=== PATIENT | female | born 1955 | race Caucasian/White ===

== ENCOUNTER 2023-01-13 18:43 | Observation (INO) | payer MEDICARE, OTHER ==
[2023-01-13] MEDS ORDERED: SODIUM CHLORIDE 0.9% 1,000 ML IV STA (18:49)
--- NOTE | 2023-01-13 18:57 | ED ---
General Adult HPI - General Chief complaint: Syncope Stated complaint: syncope/fall Time Seen by Provider: 01/13/23 18:43 Source: patient, EMS, RN notes reviewed Mode of arrival: EMS Limitations: no limitations - History of Present Illness Initial comments: 67-year-old female history of type 2 diabetes who states she was going into a bathroom at a local store when she suddenly passed out. She states she had no symptoms before hand no palpitations dizziness sweatiness tunnel vision this is never happened to her before. She was out perhaps for a minute or so she did fall onto a concrete floor striking the back side of her head she states her legs felt heavy and that she fell this all she recalls. No other current complaints or modifying factors no fevers chills nausea vomiting sweats prior to this. - Related Data Allergies Allergy/AdvReac Type Severity Reaction Status Date / Time No Known Allergies Allergy Verified 01/13/23 18:54 Review of Systems ROS Statement: Those systems with pertinent positive or pertinent negative responses have been documented in the HPI. ROS Other: All systems not noted in ROS Statement are negative. Past Medical History Past Medical History: Asthma, CVA/TIA, Diabetes Mellitus, Hyperlipidemia, Hypertension Past Surgical History: Cholecystectomy, Heart Catheterization, Orthopedic Surgery Additional Past Surgical History / Comment(s): right elbow surgery, rotator cuff, knee surgery, gastric bypass, Past Psychological History: Depression Smoking Status: Current every day smoker Past Alcohol Use History: None Reported Past Drug Use History: None Reported General Exam - General Exam Comments Initial Comments: This is a well-developed well-nourished awake alert oriented 4 female with a Raquel Coma Scale of 15 Limitations: no limitations General appearance: alert, anxious Head exam: Present: other (Is palpation over the right occipital scalp no step-o ff or crepitation no open wound seen.) Eye exam: Present: normal appearance, PERRL, EOMI. Absent: scleral icterus, conjunctival injection, periorbital swelling ENT exam: Present: normal exam, mucous membranes moist Neck exam: Present: normal inspection, other (E collar in place no definitive tenderness palpation no step-off. No stridor JVD or bruits). Absent: tenderness, meningismus, lymphadenopathy Respiratory exam: Present: normal lung sounds bilaterally. Absent: respiratory distress, wheezes, rales, rhonchi, stridor Cardiovascular Exam: Present: regular rate, normal rhythm, normal heart sounds. Absent: systolic murmur, diastolic murmur, rubs, gallop, clicks GI/Abdominal exam: Present: soft, normal bowel sounds. Absent: distended, t enderness, guarding, rebound, rigid Extremities exam: Present: normal inspection, full ROM, normal capillary refill. Absent: tenderness, pedal edema, joint swelling, calf tenderness Back exam: Present: normal inspection Neurological exam: Present: alert, oriented X3, CN II-XII intact Psychiatric exam: Present: normal affect, normal mood Skin exam: Present: warm, dry, intact, normal color. Absent: rash Course Vital Signs 01/13/23 18:46 Temperature 96.9 F L Pulse Rate 65 Respiratory 18 Rate Blood Pressure 134/81 O2 Sat by Pulse 94 L Oximetry Medical Decision Making - Medical Decision Making I did discuss findings with patient family members as well as Dr. Wade patient be admitted for inpatient evaluation of acute syncopal episode. Was pt. sent in by a medical professional or institution (, PA, VOCATIONAL INSTRUCTOR, urgent care, hospital, or half-way...) When possible be specific @ -No Did you speak to anyone other than the patient for history (EMS, parent, family, police, friend...)? What history was obtained from this source @ -EMS personnel Did you review nursing and triage notes (agree or disagree)? Why? @ -I reviewed and agree with nursing and triage notes Were old charts reviewed (outside hosp., previous admission, EMS record, old EKG, old radiological studies, urgent care reports/EKG's, half-way records)? Report findings @ -No old charts were reviewed Differential Diagnosis (chest pain, altered mental status, abdominal pain women, abdominal pain men, vaginal bleeding, weakness, fever, dyspnea, syncope, headache, dizziness, GI bleed, back pain, seizure, CVA, palpatations, mental health, musculoskeletal)? @ -Syncopal episode, scalp contusion EKG interpreted by me (3pts min.). @ -As above EKG interpreted by me normal sinus rhythm a 65 MI interval 202 QRS duration 93 QT since QTC 413/[address]-T wave changes seen X-rays interpreted by me (1pt min.). @ -This x-ray interpreted by me no acute process CT interpreted by me (1pt min.). @ -CT brain and C-spine interpreted by me no evidence of acute traumatic injury U/S interpreted by me (1pt. min.). @ -None done What testing was considered but not performed or refused? (CT, X-rays, U/S, labs)? Why? @ -None What meds were considered but not given or refused? Why? @ -None Did you discuss the management of the patient with other professionals (professionals i.e. DrMisti, PA, VOCATIONAL INSTRUCTOR, lab, RT, psych nurse, oncology social worker, manager organizational, teacher, transportation officer, disease case manager)? Give summary @ - Was smoking cessation discussed for >3mins.? @ -No Was critical care preformed (if so, how long)? @ -No Were there social determinants of health that impacted care today? How? (Homelessness, low income, unemployed, alcoholism, drug addiction, transportation, low edu. Level, literacy, decrease access to med. care, assisted, rehab)? @ -No Was there de-escalation of care discussed even if they declined (Discuss DNR or withdrawal of care, Hospice)? DNR status @ -No What co-morbidities impacted this encounter? (DM, HTN, Smoking, COPD, CAD, Cancer, CVA, ARF, Chemo, Hep., AIDS, mental health diagnosis, sleep apnea, morbid obesity)? @ -Type2 diabetes Was patient admitted / discharged? Hospital course, mention meds given and route, prescriptions, significant lab abnormalities, going to OR and other pertinent info. @ -hospital course she was admitted for inpatient evaluation and potential treatment Undiagnosed new problem with uncertain prognosis? @ -Syncope Drug Therapy requiring intensive monitoring for toxicity (Heparin, Nitro, Ins ulin, Cardizem)? @ -No Were any procedures done? @ -No Diagnosis/symptom? @ -Acute syncopal episode, scalp contusion Acute, or Chronic, or Acute on Chronic? @ -Acute Uncomplicated (without systemic symptoms) or Complicated (systemic symptoms)? @ -default Side effects of treatment? @ -No Exacerbation, Progression, or Severe Exacerbation? @ -No Poses a threat to life or bodily function? How? (Chest pain, [place], [place], pneumonia, PE, COPD, DKA, ARF, appy, cholecystitis, CVA, Diverticulitis, Homicidal, Suicidal, threat to staff... and all critical care pts) @ -Syncope - Lab Data Result diagrams: 01/13/23 19:07 01/13/23 19:07 Lab Results 01/13/23 01/13/23 01/13/23 Range/Units 19:07 19:07 19:07 WBC 9.7 (3.8-10.6) k/uL RBC 4.37 (3.80-5.40) m/uL Hgb 14.6 (11.4-16.0) gm/dL Hct 43.1 (34.0-46.0) % MCV 98.7 (80.0-100.0) fL MCH 33.3 (25.0-35.0) pg MCHC 33.8 (31.0-37.0) g/dL RDW 12.5 (11.5-15.5) % Plt Count 258 (150-450) k/uL MPV 7.8 Neutrophils % 60 % Lymphocytes % 29 % Monocytes % 6 % Eosinophils % 2 % Basophils % 1 % Neutrophils # 5.8 (1.3-7.7) k/uL Lymphocytes # 2.8 (1.0-4.8) k/uL Monocytes # 0.6 (0-1.0) k/uL Eosinophils # 0.2 (0-0.7) k/uL Basophils # 0.1 (0-0.2) k/uL PT 10.5 (10.0-12.5) sec INR 0.9 (<1.2) APTT 23.0 (22.0-30.0) sec D-Dimer 0.32 (<0.60) mg/L FEU Sodium 135 L (137-145) mmol/L Potassium 4.4 (3.5-5.1) mmol/L Chloride 102 (98-107) mmol/L Carbon Dioxide 21 L (22-30) mmol/L Anion Gap 12 mmol/L BUN 18 H (7-17) mg/dL Creatinine 0.92 (0.52-1.04) mg/dL Est GFR (CKD-EPI)AfAm 76 (>60 ml/min/1.73 sqM) Est GFR (CKD-EPI)NonAf 66 (>60 ml/min/1.73 sqM) Glucose 113 H (74-99) mg/dL Calcium 9.6 (8.4-10.2) mg/dL Magnesium 1.7 (1.6-2.3) mg/dL Total Bilirubin 0.8 (0.2-1.3) mg/dL AST 23 (14-36) U/L ALT 23 (4-34) U/L Alkaline Phosphatase 67 (38-126) U/L Troponin I (0.000-0.034) ng/mL Total Protein 6.2 L (6.3-8.2) g/dL Albumin 3.9 (3.5-5.0) g/dL Urine Color Urine Appearance (Clear) Urine pH (5.0-8.0) Ur Specific Barnard (1.001-1.035) Urine Protein (Negative) Urine Glucose (UA) (Negative) Urine Ketones (Negative) Urine Blood (Negative) Urine Nitrite (Negative) Urine Bilirubin (Negative) Urine Urobilinogen (<2.0) mg/dL Ur Leukocyte Esterase (Negative) Urine RBC (0-5) /hpf Urine WBC (0-5) /hpf Urine WBC Clumps (None) /hpf Ur Squamous Epith Cells (0-4) /hpf Urine Bacteria (None) /hpf 01/13/23 01/13/23 Range/Units 19:07 19:14 WBC (3.8-10.6) k/uL RBC (3.80-5.40) m/uL Hgb (11.4-16.0) gm/dL Hct (34.0-46.0) % MCV (80.0-100.0) fL MCH (25.0-35.0) pg MCHC (31.0-37.0) g/dL RDW (11.5-15.5) % Plt Count (150-450) k/uL MPV Neutrophils % % Lymphocytes % % Monocytes % % Eosinophils % % Basophils % % Neutrophils # (1.3-7.7) k/uL Lymphocytes # (1.0-4.8) k/uL Monocytes # (0-1.0) k/uL Eosinophils # (0-0.7) k/uL Basophils # (0-0.2) k/uL PT (10.0-12.5) sec INR (<1.2) APTT (22.0-30.0) sec D-Dimer (<0.60) mg/L FEU Sodium (137-145) mmol/L Potassium (3.5-5.1) mmol/L Chloride (98-107) mmol/L Carbon Dioxide (22-30) mmol/L Anion Gap mmol/L BUN (7-17) mg/dL Creatinine (0.52-1.04) mg/dL Est GFR (CKD-EPI)AfAm (>60 ml/min/1.73 sqM) Est GFR (CKD-EPI)NonAf (>60 ml/min/1.73 sqM) Glucose (74-99) mg/dL Calcium (8.4-10.2) mg/dL Magnesium (1.6-2.3) mg/dL Total Bilirubin (0.2-1.3) mg/dL AST (14-36) U/L ALT (4-34) U/L Alkaline Phosphatase (38-126) U/L Troponin I <0.012 (0.000-0.034) ng/mL Total Protein (6.3-8.2) g/dL Albumin (3.5-5.0) g/dL Urine Color Yellow Urine Appearance Slightly Cloudy H (Clear) Urine pH 6.0 (5.0-8.0) Ur Specific Barnard 1.001 (1.001-1.035) Urine Protein Negative (Negative) Urine Glucose (UA) 3+ H (Negative) Urine Ketones Negative (Negative) Urine Blood Negative (Negative) Urine Nitrite Negative (Negative) Urine Bilirubin Negative (Negative) Urine Urobilinogen <2.0 (<2.0) mg/dL Ur Leukocyte Esterase Moderate H (Negative) Urine RBC 2 (0-5) /hpf Urine WBC 36 H (0-5) /hpf Urine WBC Clumps Occasional H (None) /hpf Ur Squamous Epith Cells 1 (0-4) /hpf Urine Bacteria Few H (None) /hpf - EKG Data -: EKG Interpreted by Me EKG Comments: EKG interpreted by me normal sinus rhythm without acute processes ventricular rate 65. Interval 202 QRS duration 92 QT since QTC 04/08/2012/424 - Radiology Data Interpreted by me: Imaging interpreted B no Disposition Clinical Impression: Syncope and collapse, Scalp contusion Disposition: ADMITTED IP TO THIS [facility] Condition: Stable Referrals: None,Stated [Primary Care Provider] - 1-2 days Decision Date: 01/13/23 Decision Time: 21:05
[2023-01-13 19:28] LABS: Basophils # (A) 0.1 k/uL (0-0.2); Basophils % (A) 1 %; Eosinophils # (A) 0.2 k/uL (0-0.7); Eosinophils % (A) 2 %; HCT 43.1 % (34.0-46.0); HGB 14.6 gm/dL (11.4-16.0); Lymphocytes # (A) 2.8 k/uL (1.0-4.8); Lymphocytes % (A) 29 %; MCH 33.3 pg (25.0-35.0); MCHC 33.8 g/dL (31.0-37.0); MCV 98.7 fL (80.0-100.0); Mean Platelet Volume 7.8; Monocytes # (A) 0.6 k/uL (0-1.0); Monocytes % (A) 6 %; Neutrophils # (A) 5.8 k/uL (1.3-7.7); Neutrophils % (A) 60 %; Platelet Count 258 k/uL (150-450); RBC 4.37 m/uL (3.80-5.40); RDW 12.5 % (11.5-15.5); WBC 9.7 k/uL (3.8-10.6)
[2023-01-13 19:36] LABS: ALT 23 U/L (4-34); AST 23 U/L (14-36); African American GFR (CKD) 76 (>60 ml/min/1.73 sqM); Albumin 3.9 g/dL (3.5-5.0); Alkaline Phosphatase 67 U/L (38-126); Anion Gap 12 mmol/L; Blood Urea Nitrogen 18 mg/dL (7-17); Calcium 9.6 mg/dL (8.4-10.2); Carbon Dioxide 21 mmol/L (22-30); Chloride 102 mmol/L (98-107); Glucose 113 mg/dL (74-99); Magnesium 1.7 mg/dL (1.6-2.3); Non-African American GFR(CKD) 66 (>60 ml/min/1.73 sqM); Potassium 4.4 mmol/L (3.5-5.1); Sodium 135 mmol/L (137-145); Total Bilirubin 0.8 mg/dL (0.2-1.3); Total Protein 6.2 g/dL (6.3-8.2)
[2023-01-13 19:42] LABS: INR 0.9 (<1.2); Prothrombin Time 10.5 sec (10.0-12.5)
[2023-01-13 20:25] LABS: Bacteria,Urine Few /hpf; RBC,Urine 2 /hpf (0-5); Squamous Epithelial Cell,Urine 1 /hpf (0-4); WBC,Urine 36 /hpf (0-5)
[2023-01-13 20:33] LABS: Appearance,Urine Slightly Cloudy (Clear); Bilirubin,Urine Negative (Negative); Color,Urine Yellow; Glucose,Urine (UA) 3+ (Negative); Ketones,Urine Negative (Negative); Protein,Urine Negative (Negative)
[2023-01-13 20:34] LABS: Blood,Urine Negative (Negative); Leukocyte Esterase,Urine Moderate (Negative); Nitrite,Urine Negative (Negative); Urobilinogen,Urine <2.0 mg/dL (<2.0)
[2023-01-13] MEDS ORDERED: ACETAMINOPHEN TAB 325 MG TAB PO STA (20:55)
[2023-01-13] MEDS ORDERED: NALOXONE 0.4 MG/ML 1 ML VIAL IV PRN (21:05)
--- NOTE | 2023-01-13 21:27 | CT ---
EXAMINATION TYPE: CT brain cspine wo con CT DLP: 1617.7 mGycm, Automated exposure control for dose reduction was used. DATE OF EXAM: 01/13/2023 7:38 PM COMPARISON: None. CLINICAL INDICATION:Female, 67 years old with history of syncope; syncope TECHNIQUE: Brain: Multiple axial CT images of the brain were obtained without IV contrast. Cspine: Axial CT images from the skull base to the inferior aspect of T2 we obtained without intraven ous contrast. Coronal and sagittal reformatted images were also reviewed. FINDINGS: Brain: Extra-axial spaces: No abnormal extra-axial fluid collections. Ventricular system: Appear dilated in proportion to the degree of cerebral atrophy. Cerebral parenchyma: No increased attenuation to suggest acute intraparenchymal hemorrhage. The gra y-white matter interface appears maintained. Moderate generalized brain atrophy. Scattered hypoatte nuating areas are seen within the cerebral white matter, nonspecific but most often seen with chronic microvascular ischemic changes; mild/moderate in degree. Cerebellum: No acute abnormality. Mass effect: No evidence of mass effect or midline shift. Intracranial vasculature: Atherosclerotic calcifications of the larger arteries near the skull base. Soft tissues: Scalp hematoma just right of midline posteriorly at the level of the parietal lobe. Visualized orbits: Orbital contents appear grossly intact. Calvarium/osseous structures: No evidence of calvarial fracture. Paranasal sinuses and mastoid air cells: Clear. Nasal septal deviation towards the left with osseous spur in its midportion. MRI is more sensitive for detecting acute processes such as infarct, and may be considered if clinica lly warranted. Cervical spine: Fracture: None seen. Osseous structures, spinal canal/neural foramina: There is mild/moderate multilevel degenerative disc disease and mild facet arthrosis, most prominent at C4-C5, C5-C6, and C6-C7 where predominantly disc osteophyte complexes cause at least mild canal and foraminal narrowing. Vertebral alignment: No trau matic malalignment. Straightening of the normal cervical lordosis, can be seen with degenerative quintana ges, pain, positioning, muscular spasm. Neck soft tissues: No acute finding.. A few arterial vascular calcifications, seem to predominantly i nvolve the left vertebral artery and right carotid bifurcation. Other: Lung apices show no acute infiltrate or pneumothorax. IMPRESSION: CT head: 1. Scalp hematoma posteriorly over the right parietal bone. No evidence of calvarial fracture. 2. Mild to moderate generalized atrophy and chronic microvascular ischemic changes. 3. No acute intracranial hemorrhage. CT cervical spine: 1. No evidence of cervical spine fracture or traumatic malalignment. 2. Mild/moderate cervical spondylosis.
[2023-01-13] MEDS: SODIUM CHLORIDE 0.9% 1,000 ML IV SCH (21:38)
--- NOTE | 2023-01-14 00:01 | XR ---
EXAMINATION TYPE: XR chest 2V DATE OF EXAM: 01/13/2023 9:08 PM CLINICAL INDICATION:Female, 67 years old with history of syncope; [facility] COMPARISON: None TECHNIQUE: XR chest 2V. Frontal PA and lateral views of the chest. FINDINGS: Lines/Tubes: EKG leads and other extraneous densities over the chest. No indwelling lines are seen. Heart/mediastinum: Cardiomediastinal silhouette is well defined. Heart size is normal. Partial calc ification of the aortic arch. Mediastinum appears otherwise normal. Pulmonary vascularity: Not increased, Lungs/Pleura: There is no evidence of pleural effusion, focal consolidation, or pneumothorax. Musculoskeletal: No acute osseous abnormality demonstrated in the limits of the exam. Chronic degene rative changes of the shoulders and spine. Surgical anchor left humeral head. Other findings: None. IMPRESSION: No acute cardiopulmonary abnormality.
[2023-01-14] MEDS ORDERED: DEXTROSE 50% SYRINGE 50 ML IVP PRN ×2 (03:04)
[2023-01-14] MEDS ORDERED: IPRATROPIUM-ALBUTEROL 3 ML NEB INHALATION PRN (03:04)
--- NOTE | 2023-01-14 03:11 | P.HPIM ---
History of Present Illness H&P Date: 01/13/23 Chief Complaint: Syncope 67-year-old female with diabetes mellitus coronary artery disease Patient claims that she takes oral hypoglycemic agents however she didn't eat all day she was feeling fine while she was shopping at grocery store she decided to go to the bathroom where she actually collapsed another lady was in another stall her the start and called EMS. Patient believes that she passed out and hit her head she denies any symptoms prior or after the episode she felt fine after she woke up found herself on the floor hit the back of her head she denies being on any blood thinners or antiplatelets. She currently denies any headache or focal neuro deficits denies any changes in hearing or vision denies any nausea vomiting denies feeling weak denies any chest pain or trouble breathing denies any palpitations. She denies any recent changes in her medications she reports that this has never happened to her before. She walks without assistance. She denies any recent travel her hospital stay denies any history of stroke or blood clots review of systems Pertinent positives as noted in HPI. All other systems were reviewed and are negative on exam Constitutional: No acute distress, conversant, pleasant Eyes: Anicteric sclerae, moist conjunctiva, Pupils equal round reactive to light ENMT: NC/tender area over the scalp of the back of her head Oropharynx clear, no erythema, or exudates Neck: Supple, no masses, or JVD No carotid bruits No thyromegaly Lungs: Clear to auscultation Clear to percussion Normal respiratory effort, no accessory muscle use Cardiovascular: Heart regular in rate and rhythm, No murmurs, gallops, or rubs No peripheral edema Abdominal: Soft Nontender, no guarding, rebound or rigidity Abdomen moving with respiration Normoactive bowel sounds No hepatomegaly, No splenomegaly No palpable mass No abdominal wall hernia noted Extremities: No digital cyanosis No clubbing Pedal pulses intact and symmetrical Radial pulses intact and symmetrical No calf tenderness Psychiatric: Alert and oriented to person, place and time Appropriate affect fair judgement Neuro Muscles Strength 5/5 in all 4 extremities Sensation to light touch grossly present throughout Cranial nerves II-XII grossly intact Lymphatics: no palpable cervical or supraclavicular lymph nodes Past Medical History Past Medical History: Asthma, CVA/TIA, Diabetes Mellitus, Hyperlipidemia, Hypertension Past Surgical History: Cholecystectomy, Heart Catheterization, Orthopedic Surgery Additional Past Surgical History / Comment(s): right elbow surgery, rotator cuff , knee surgery, gastric bypass, Past Psychological History: Depression Smoking Status: Current every day smoker Past Alcohol Use History: None Reported Past Drug Use History: None Reported Medications and Allergies Home Medications Medication Instructions Recorded Confirmed Type Albuterol Inhaler [Ventolin Hfa 1 - 2 puff INHALATION RT-Q6H PRN 01/13/23 01/13/23 History Inhaler] Atorvastatin [Lipitor] 40 mg PO DAILY 01/13/23 01/13/23 History Erenumab-Aooe [Aimovig 70 mg SQ Q30D 01/13/23 01/13/23 History Autoinjector] Liraglutide [Victoza 3-Virgilio] 1.8 mg SQ DAILY 01/13/23 01/13/23 History Losartan [Cozaar] 25 mg PO DAILY 01/13/23 01/13/23 History Montelukast [Singulair] 10 mg PO HS 01/13/23 01/13/23 History Omeprazole 20 mg PO DAILY 01/13/23 01/13/23 History Propranolol LA [Inderal LA] 60 mg PO DAILY 01/13/23 01/13/23 History Ranolazine [Ranexa] 500 mg PO BID 01/13/23 01/13/23 History Rimegepant Sulfate [Nurtec Odt] 75 mg PO DAILY PRN 01/13/23 01/13/23 History Venlafaxine HCl [Effexor XR] 75 mg PO DAILY 01/13/23 01/13/23 History Venlafaxine HCl [Effexor XR] 150 mg PO DAILY 01/13/23 01/13/23 History metFORMIN HCL 500 mg PO BID 01/13/23 01/13/23 History Allergies Allergy/AdvReac Type Severity Reaction Status Date / Time No Known Allergies Allergy Verified 01/13/23 21:51 Physical Exam Vitals: Vital Signs Temp Pulse Resp BP Pulse Ox 01/13/23 18:46 96.9 F L 65 18 134/81 94 L Intake and Output 01/13/23 01/13/23 01/13/23 06:59 14:59 22:59 Other: Weight 104.326 kg Results CBC & Chem 7: 01/13/23 19:07 01/13/23 19:07 Labs: Abnormal Lab Results - Last 24 Hours (Table) 01/13/23 01/13/23 Range/Units 19:07 19:14 Sodium 135 L (137-145) mmol/L Carbon Dioxide 21 L (22-30) mmol/L BUN 18 H (7-17) mg/dL Glucose 113 H (74-99) mg/dL Total Protein 6.2 L (6.3-8.2) g/dL Urine Appearance Slightly Cloudy H (Clear) Urine Glucose (UA) 3+ H (Negative) Ur Leukocyte Esterase Moderate H (Negative) Urine WBC 36 H (0-5) /hpf Urine WBC Clumps Occasional H (None) /hpf Urine Bacteria Few H (None) /hpf Assessment and Plan Assessment: 67-year-old female with diabetes mellitus CAD coming in after a syncopal episode while grocery shopping I discussed the case with the ED doctor and accepted the admission for syncope with anticipated length of stay less than 2 midnights Syncopal episode Suspected secondary to hypoglycemia as patient took her oral hypoglycemic agents without eating all day Initial blood sugar upon arrival was 113 Cardiac monitoring EKG normal sinus rhythm She scan of the brain and cervical spine no acute intracranial pathology no cervical spine pathology. Showed occipital scalp hematoma Pain control Tylenol 650 mg by mouth when necessary every 6 hours Blood work unremarkable myoglobin 14.6 white count 9.7 Sodium 135 potassium 4.4 BUN 18 creatinine 0.9 Troponins negative 2 Urinalysis unremarkable slightly cloudy patient denies any urinary symptoms Check echocardiogram Cardiology consult Chronic conditions Coronary artery disease Continue with atorvastatin 40 mg by mouth daily Continue with Ranexa Hypertension Continue with home medications losartan and propranolol home dose Intermittent asthma DuoNeb's when necessary Continue home medicine Singulair daily Full code DVT prophylaxis heparin subcu 3 times a day
[2023-01-14] MEDS: ACETAMINOPHEN TAB 325 MG TAB PO PRN ×2 (05:38→21:41)
[2023-01-14 07:30] LABS: Glucose,Whole Blood 103 mg/dL (70-110)
[2023-01-14] MEDS: INSULIN ASPART (NovoLOG) 100 UNIT/ML VIAL SQ SCH ×4 (07:32→23:53)
[2023-01-14] MEDS: HEPARIN SODIUM,PORCINE 5,000 UNIT/ML 1 ML VIAL SQ SCH ×3 (07:41→23:54)
[2023-01-14] MEDS: ATORVASTATIN 40 MG TAB PO SCH (08:58)
[2023-01-14] MEDS: PANTOPRAZOLE 40 MG TABLET PO SCH (08:58)
[2023-01-14] MEDS: RANOLAZINE 500 MG TAB.ER.12H PO SCH ×2 (08:58→21:41)
[2023-01-14] MEDS: LOSARTAN 25 MG TAB PO SCH (08:58)
[2023-01-14 11:57] LABS: Glucose,Whole Blood 133 mg/dL (70-110)
[2023-01-14] MEDS: PROPRANOLOL LA 60 MG CAP.SA.24H PO SCH (11:59)
[2023-01-14] MEDS: SODIUM CHLORIDE 0.9% 1,000 ML IV SCH ×2 (12:00→23:59)
--- NOTE | 2023-01-14 12:54 | P.PN ---
Subjective Progress Note Date: 01/14/23 (zora charting seen at 0925) Patient is a 67-year-old female with known diabetes mellitus type 2, hypertension, dyslipidemia, asthma, and migraine headaches who presented to the ER after a syncopal episode. On arrival her vital signs are within normal limits. She underwent CT head and cervical spine which revealed a scalp hematoma over the right parietal bone, mild to moderate generalized atrophy with microvascular ischemic changes, and no evidence of cervical spine fracture or traumatic malalignment. Chest x-ray demonstrated no acute process. There was some concern that her syncopal episode may be due to hypoglycemia. Patient seen and examined at bedside. She complains of pain in the back of her head where she has a scalp hematoma as well as headache. She is overall particularly fatigued today, she denies any difficulty with concentration or memory. She denies any chest pain, shortness of breath, nausea or vomiting. She denies any recent illnesses. She has no history of syncope in the past. Vital signs reviewed General: Nontoxic, no distress, appears at stated age Cardiovascular: S1S2 reg, no murmur, positive posterior tibial pulse bilateral, Lungs: CTA bilateral, no rhonchi, no rales, no accessory muscle use Abdominal: Soft, nontender to palpation, no guarding, no appreciable organomegaly Ext: No gross muscle atrophy, no edema b/l lower extremities, no contractures Neuro: CN II-XI grossly intact, no focal neuro deficits Psych: Alert, oriented, appropriate affect Assessment/Plan: Syncope, undetermined etiology -Discussed with nursing to check orthostatic vital signs -Telemetry reviewed without significant abnormality. -Await cardiology recommendations -Await echocardiogram -Follow blood sugars Diabetes mellitus type 2, [id number] -Hold Victoza 1.8 mg daily, metformin 500 mg twice daily, start sliding scale insulin, follow blood sugars Hypertension Dyslipidemia -Continue with Cozaar 25 mg daily, propranolol 60 mg daily, and Lipitor 40 mg daily Imaging: None new Data Review: None new for review DVT prophylaxis: Early ambulation Anticipated discharge date: [address]: Home This dictation was prepared using [employer] voice recognition software. Though every attempt is made to correct errors during dictation some may still exist. Objective - Vital Signs Vital signs: Vital Signs Temp 98.1 F 01/14/23 09:45 Pulse 64 01/14/23 09:45 Resp 16 12/10/23 09:45 BP 148/73 01/14/23 09:45 Pulse Ox 100 01/14/23 09:45 FiO2 Intake & Output 01/13/23 01/14/23 01/14/23 18:59 06:59 18:59 Intake Total 240 Balance 240 Weight 104.326 kg 104.326 kg Intake: Oral 240 - Labs CBC & Chem 7: 01/13/23 19:07 01/13/23 19:07 Labs: Abnormal Lab Results - Last 24 Hours (Table) 01/13/23 01/13/23 01/14/23 Range/Units 19:07 19:14 11:51 Sodium 135 L (137-145) mmol/L Carbon Dioxide 21 L (22-30) mmol/L BUN 18 H (7-17) mg/dL Glucose 113 H (74-99) mg/dL POC Glucose (mg/dL) 133 H (70-110) mg/dL Total Protein 6.2 L (6.3-8.2) g/dL Urine Appearance Slightly Cloudy H (Clear) Urine Glucose (UA) 3+ H (Negative) Ur Leukocyte Esterase Moderate H (Negative) Urine WBC 36 H (0-5) /hpf Urine WBC Clumps Occasional H (None) /hpf Urine Bacteria Few H (None) /hpf
--- NOTE | 2023-01-14 15:45 | P.CRDCN ---
History of Present Illness Consult date: 01/14/23 Requesting physician: Kimberlyn Bryant Reason for Consult (text): syncope Chief complaint: syncope History of present illness: Is a pleasant 67-year-old female patient who follows with Dr. Abdi out of [place]. She has a past medical history of CAD but coronary CTA, angina controlled with Ranexa, retention, hyperlipidemia, diabetes and migraines. He presented to the emergency department after having a syncopal episode. She was apparently grocery shopping had eaten or drank much throughout the day and walked into the bathroom and had a syncopal episode, brief. She did her head and had some nausea after the fall but denies any nausea or vomiting prior to. Denies any loss of bowel or bladder control denies any seizure-like activities. She denies any dizziness or lightheadedness prior to. Blood glucose level was 113 on admission. EKG showed sinus mechanism with no evidence of ischemia. There is been no evidence of bradycardia or arrhythmia on telemetry. Monitor levels have been normal 3. Upon examination she is resting comfortably in bed. She is overall feeling well. Denies any chest discomfort, shortness of breath, orthopnea or PND. Past Medical History Past Medical History: Asthma, CVA/TIA, Diabetes Mellitus, Hyperlipidemia, Hypertension History of Any Multi-Drug Resistant Organisms: None Reported Past Surgical History: Cholecystectomy, Heart Catheterization, Orthopedic Surgery Additional Past Surgical History / Comment(s): right elbow surgery, rotator cuff, knee surgery, gastric bypass, Past Anesthesia/Blood Transfusion Reactions: No Reported Reaction Past Psychological History: Depression Smoking Status: Never smoker Past Alcohol Use History: None Reported Past Drug Use History: None Reported - Past Family History Mother Family Medical History: Coronary Artery Disease (CAD), Dementia, Diabetes Mellitus Father Family Medical History: Coronary Artery Disease (CAD), CVA/TIA, Diabetes Mellitus Medications and Allergies Home Medications Medication Instructions Recorded Confirmed Type Albuterol Inhaler [Ventolin Hfa 1 - 2 puff INHALATION RT-Q6H PRN 01/13/23 01/13/23 History Inhaler] Atorvastatin [Lipitor] 40 mg PO DAILY 01/13/23 01/13/23 History Erenumab-Aooe [Aimovig 70 mg SQ Q30D 01/13/23 01/13/23 History Autoinjector] Liraglutide [Victoza 3-Virgilio] 1.8 mg SQ DAILY 01/13/23 01/13/23 History Losartan [Cozaar] 25 mg PO DAILY 01/13/23 01/13/23 History Montelukast [Singulair] 10 mg PO HS 01/13/23 01/13/23 History Omeprazole 20 mg PO DAILY 01/13/23 01/13/23 History Propranolol LA [Inderal LA] 60 mg PO DAILY 01/13/23 01/13/23 History Ranolazine [Ranexa] 500 mg PO BID 01/13/23 01/13/23 History Rimegepant Sulfate [Nurtec Odt] 75 mg PO DAILY PRN 01/13/23 01/13/23 History Venlafaxine HCl [Effexor XR] 75 mg PO DAILY 01/13/23 01/13/23 History Venlafaxine HCl [Effexor XR] 150 mg PO DAILY 01/13/23 01/13/23 History metFORMIN HCL 500 mg PO BID 01/13/23 01/13/23 History Allergies Allergy/AdvReac Type Severity Reaction Status Date / Time No Known Allergies Allergy Verified 01/13/23 21:51 Physical Exam Vitals: Vital Signs Temp Pulse Pulse Resp BP BP BP 01/14/23 13:44 98/55 94/55 01/14/23 09:45 98.1 F 64 16 148/73 01/14/23 09:01 98.1 F 64 16 148/73 01/14/23 08:04 70 17 107/71 01/14/23 06:00 66 16 113/62 01/14/23 05:00 64 12 118/74 01/14/23 04:00 66 13 103/66 01/14/23 03:00 63 16 106/66 01/14/23 02:00 65 15 122/67 01/14/23 01:00 64 17 136/80 01/14/23 00:15 62 18 136/80 01/14/23 00:00 61 16 136/84 01/13/23 22:00 61 15 140/85 01/13/23 20:49 66 20 148/78 01/13/23 18:46 96.9 F L 65 18 134/81 BP Pulse Ox 01/14/23 13:44 101/57 01/14/23 09:45 100 01/14/23 09:01 100 01/14/23 08:04 98 01/14/23 06:00 94 L 01/14/23 05:00 97 01/14/23 04:00 93 L 01/14/23 03:00 95 01/14/23 02:00 94 L 01/14/23 01:00 93 L 01/14/23 00:15 92 L 01/14/23 00:00 91 L 01/13/23 22:00 96 01/13/23 20:49 97 01/13/23 18:46 94 L Intake and Output 01/14/23 01/14/23 01/14/23 06:59 14:59 22:59 Intake Total 240 Balance 240 Intake: Oral 240 Other: Weight 104.326 kg PHYSICAL EXAMINATION: This is a 67-year-old female in no apparent distress at the time of my examination. VITAL SIGNS: Reviewed. HEENT: Head is atraumatic, normocephalic. Pupils are equal, round. Sclerae anicteric. Conjunctivae are clear. Mucous membranes of the mouth are moist. Neck is supple. There is no elevated jugular venous pressure. No carotid bruit is heard. CHEST EXAMINATION: Clear to auscultation bilaterally. No wheezes rales or rhonchi. Respirations even and nonlabored. HEART EXAMINATION: Heart regular, positive S1 and S2. No S3. No S4. No clicks, rubs or murmurs. ABDOMEN: Soft, nontender. Bowel sounds are heard. No organomegaly noted. EXTREMITIES: 2+ peripheral pulses with no evidence of peripheral edema and no calf tenderness noted. NEUROLOGIC EXAMINATION: Patient is awake, alert and oriented x3. Results 01/13/23 19:07 01/13/23 19:07 Cardiac Enzymes 01/13/23 01/13/23 01/13/23 Range/Units 19:07 19:07 22:22 AST 23 (14-36) U/L Troponin I <0.012 <0.012 (0.000-0.034) ng/mL 01/14/23 Range/Units 01:19 AST (14-36) U/L Troponin I <0.012 (0.000-0.034) ng/mL Coagulation 01/13/23 Range/Units 19:07 PT 10.5 (10.0-12.5) sec APTT 23.0 (22.0-30.0) sec CBC 01/13/23 Range/Units 19:07 WBC 9.7 (3.8-10.6) k/uL RBC 4.37 (3.80-5.40) m/uL Hgb 14.6 (11.4-16.0) gm/dL Hct 43.1 (34.0-46.0) % Plt Count 258 (150-450) k/uL Comprehensive Metabolic Panel 01/13/23 Range/Units 19:07 Sodium 135 L (137-145) mmol/L Potassium 4.4 (3.5-5.1) mmol/L Chloride 102 (98-107) mmol/L Carbon Dioxide 21 L (22-30) mmol/L BUN 18 H (7-17) mg/dL Creatinine 0.92 (0.52-1.04) mg/dL Glucose 113 H (74-99) mg/dL Calcium 9.6 (8.4-10.2) mg/dL AST 23 (14-36) U/L ALT 23 (4-34) U/L Alkaline Phosphatase 67 (38-126) U/L Total Protein 6.2 L (6.3-8.2) g/dL Albumin 3.9 (3.5-5.0) g/dL Current Medications Generic Name Dose Route Start Last Admin Trade Name Freq PRN Reason Stop Dose Admin Acetaminophen 650 mg 01/13/23 21:05 01/14/23 05:38 Acetaminophen Tab 325 Mg Tab PO 650 mg Q6HR PRN Administration Mild Pain or Fever > 100.5 Albuterol/Ipratropium 3 ml 01/14/23 03:04 Ipratropium-Albuterol 3 Ml Neb INHALATION RT-QID PRN Shortness Of Breath Or Wheezing Atorvastatin Calcium 40 mg 01/14/23 09:00 01/14/23 08:58 Atorvastatin 40 Mg Tab PO 40 mg DAILY GONZALEZ Administration Dextrose/Water 25 ml 01/14/23 03:04 Dextrose 50% Syringe 50 Ml IVP PER PROTOCOL PRN Hypoglycemia Protocol Dextrose/Water 50 ml 01/14/23 03:04 Dextrose 50% Syringe 50 Ml IVP PER PROTOCOL PRN Hypoglycemia Protocol Heparin Sodium (Porcine) 5,000 unit 01/14/23 08:00 01/14/23 07:41 Heparin Sodium,Porcine 5,000 Unit/Ml 1 Ml Vial SQ 5,000 unit Q8HR GONZALEZ Administration Sodium Chloride 1,000 mls @ 75 mls/hr 01/13/23 21:15 01/14/23 12:00 Saline 0.9% IV Not Given .[id number] GONZALEZ Insulin Aspart 0 unit 01/14/23 07:30 01/14/23 11:57 Insulin Aspart (Novolog) 100 Unit/Ml Vial SQ Not Given ACHS GONZALEZ Protocol Losartan Potassium 25 mg 01/14/23 09:00 01/14/23 08:58 Losartan 25 Mg Tab PO 25 mg DAILY GONZALEZ Administration Montelukast Sodium 10 mg 01/14/23 21:00 Montelukast 10 Mg Tab PO HS GONZALEZ Naloxone HCl 0.2 mg 01/13/23 21:05 Naloxone 0.4 Mg/Ml 1 Ml Vial IV Q2M PRN Opioid Reversal Pantoprazole Sodium 40 mg 01/14/23 09:00 01/14/23 08:58 Pantoprazole 40 Mg Tablet PO 40 mg DAILY GONZALEZ Administration Propranolol HCl 60 mg 01/14/23 09:00 01/14/23 11:59 Propranolol La 60 Mg Cap.Sa.24h PO 60 mg DAILY GONZALEZ Administration Ranolazine 500 mg 01/14/23 09:00 01/14/23 08:58 Ranolazine 500 Mg Tab.Er.12h PO 500 mg BID GONZALEZ Administration Venlafaxine HCl 75 mg 01/14/23 12:45 Venlafaxine Hcl Er 75 Mg Cap PO DAILY GONZALEZ Venlafaxine HCl 150 mg 01/14/23 12:45 Venlafaxine Hcl Er 150 Mg Cap PO DAILY GONZALEZ Intake and Output 01/14/23 01/14/23 01/14/23 06:59 14:59 22:59 Intake Total 240 Balance 240 Intake: Oral 240 Other: Weight 104.326 kg Patient Weight 01/15/23 06:59 Weight 104.326 kg 01/13/23 19:07 01/13/23 19:07 Assessment and Plan Assessment: #1 syncope #2 CAD #3 hypertension #4 hyperlipidemia #5 diabetes #6 migraines Plan: From cardiology's perspective will obtain a 2-D echo with Doppler study to assess cardiac structure and function. Continue to monitor on telemetry. If there are no significant abnormalities noted on echocardiogram and no arrhyth mias or significant bradycardia patient will likely be discharged home tomorrow and follow up with her primary clinical engineering director. DEVELOPMENT EDITOR note has been reviewed, I agree with a documented findings and plan of care. Patient was seen and examined.
[2023-01-14] MEDS: ASPIRIN 81 MG PO SCH (15:57)
[2023-01-14] MEDS: VENLAFAXINE HCL ER 75 MG CAP PO SCH (15:58)
[2023-01-14] MEDS: VENLAFAXINE HCL ER 150 MG CAP PO SCH (15:58)
[2023-01-14 16:37] LABS: Glucose,Whole Blood 150 mg/dL (70-110)
[2023-01-14] MEDS ORDERED: MONTELUKAST 10 MG TAB PO SCH (21:00)
[2023-01-15 02:17] LABS: Glucose,Whole Blood 124 mg/dL (70-110)
[2023-01-15 05:57] LABS: Glucose,Whole Blood 112 mg/dL (70-110)
[2023-01-15] MEDS: INSULIN ASPART (NovoLOG) 100 UNIT/ML VIAL SQ SCH ×3 (06:19→17:06)
[2023-01-15] MEDS: RANOLAZINE 500 MG TAB.ER.12H PO SCH (09:43)
[2023-01-15] MEDS: PANTOPRAZOLE 40 MG TABLET PO SCH (09:43)
[2023-01-15] MEDS: HEPARIN SODIUM,PORCINE 5,000 UNIT/ML 1 ML VIAL SQ SCH ×2 (09:43→17:06)
[2023-01-15] MEDS: ASPIRIN 81 MG PO SCH (09:43)
[2023-01-15] MEDS: PROPRANOLOL LA 60 MG CAP.SA.24H PO SCH (09:43)
[2023-01-15] MEDS: LOSARTAN 25 MG TAB PO SCH (09:43)
[2023-01-15] MEDS: VENLAFAXINE HCL ER 75 MG CAP PO SCH (09:43)
[2023-01-15] MEDS: ATORVASTATIN 40 MG TAB PO SCH (09:43)
[2023-01-15] MEDS: VENLAFAXINE HCL ER 150 MG CAP PO SCH (09:44)
[2023-01-15 12:07] LABS: Glucose,Whole Blood 114 mg/dL (70-110)
--- NOTE | 2023-01-15 13:42 | CA ---
Transthoracic Echo Report Name: Carol Hutchins Age: 67 Gender: F : 1955 Exam Date: 01/15/2023 08:06 Exam Location: [place] [facility] Ht (in): 63 Wt (lb): 230 Ordering Physician: Kimberlyn Bryant MD Attending/Referring Phys: [id number], [employer] Operator Eileen Peterson [facility] Procedure CPT: Indications: Syncope Cardiac Hx: Technical Quality: Fair Contrast 1: Total Dose (mL): Contrast 2: Total Dose (mL): MEASUREMENTS (Male / Female) Normal Values 2D ECHO LV Diastolic Diameter PLAX 4.3 cm 4.2 - 5.9 / 3.9 - 5.3 cm LV Systolic Diameter PLAX 3.0 cm IVS Diastolic Thickness 0.8 cm 0.6 - 1.0 / 0.6 - 0.9 cm LVPW Diastolic Thickness 0.9 cm 0.6 - 1.0 / 0.6 - 0.9 cm LV Relative Wall Thickness 0.4 LVOT Diameter 2.0 cm Ascending Aorta Diameter 3.7 cm M-MODE Aortic Root Diameter MM 2.4 cm LA Systolic Diameter MM 3.9 cm LA Ao Ratio MM 1.6 AV Cusp Separation MM 1.8 cm DOPPLER AV Peak Velocity 140.0 cm/s AV Peak Gradient 7.8 mmHg AV Mean Velocity 104.7 cm/s AV Mean Gradient 4.8 mmHg AV Velocity Time Integral 24.6 cm LVOT Peak Velocity 108.4 cm/s LVOT Peak Gradient 4.7 mmHg LVOT Velocity Time Integral 20.5 cm LVOT Stroke Volume 63.4 cm??? LVOT Stroke Volume Index 30.9 ml/m??? LVOT Cardiac Index 2038.9 cm???/min???m??? AV Area Cont Eq vti 2.6 cm??? AV Area Cont Eq pk 2.4 cm??? Mitral E Point Velocity 67.4 cm/s Mitral A Point Velocity 95.6 cm/s Mitral E to A Ratio 0.7 MV Deceleration Time 249.5 ms LV E' Lateral Velocity 10.9 cm/s Mitral E to LV E' Lateral Ratio 6.2 LV E' Septal Velocity 7.3 cm/s Mitral E to LV E' Septal Ratio 9.2 Right Atrial Pressure 3.0 mmHg FINDINGS Left Ventricle Left ventricular wall thickness normal. Left ventricular cavity size normal. Normal left ventricular systolic function with no obvious regional wall motion abnormalities. Left ventricular ejection fraction is estimated at 55-60%. Right Ventricle Right ventricle at upper limits of normal. Right Atrium Upper normal right atrial size. Left Atrium Normal left atrial size. Mitral Valve Structurally normal mitral valve. No mitral regurgitation. Aortic Valve Trileaflet aortic valve. Mild aortic regurgitation. Tricuspid Valve Structurally normal tricuspid valve. No tricuspid regurgitation. Pulmonic Valve Pulmonic valve not well visualized. Pericardium Minimal pericardial effusion (normal variant). Aorta Normal size aortic root and upper normal proximal ascending aorta. CONCLUSIONS Left ventricular ejection fraction is estimated at 55-60%. No obvious regional wall motion abnormalities. No significant valvular dysfunction RVSP could not be estimated Previewed by: Dr Malachi Proctor (Electronically Signed) Final Date: 15 January 2023 13:41
--- NOTE | 2023-01-15 14:31 | P.PN ---
Subjective HISTORY OF PRESENT ILLNESS: This is a pleasant 67-year-old female patient who follows with Dr. Abdi out of [place]. She has a past medical history of CAD but coronary CTA, angina controlled with Ranexa, retention, hyperlipidemia, diabetes and migraines. He presented to the emergency department after having a syncopal episode. She was apparently grocery shopping had eaten or drank much throughout the day and wal ked into the bathroom and had a syncopal episode, brief. She did her head and had some nausea after the fall but denies any nausea or vomiting prior to. Denies any loss of bowel or bladder control denies any seizure-like activities. She denies any dizziness or lightheadedness prior to. Blood glucose level was 113 on admission. EKG showed sinus mechanism with no evidence of ischemia. There is been no evidence of bradycardia or arrhythmia on telemetry. Monitor levels have been normal 3. Upon examination she is resting comfortably in bed. She is overall feeling well. Denies any chest discomfort, shortness of breath, orthopnea or PND. 01/15/2023 Patient examined this morning at the bedside. Patient currently denies chest pain or pressure. Denies shortness of breath. Telemetry reveals sinus mechanism with no significant arrhythmias noted. Vital signs are stable. Ech ocardiogram completed revealing ejection fraction 55-60% with no significant valvular dysfunction. PHYSICAL EXAM: VITAL SIGNS: Reviewed. GENERAL: Well-developed in no acute distress. NECK: Supple. No JVD or thyromegaly LUNGS: Respirations even and unlabored. Lungs essentially clear to auscultation bilaterally. HEART: Regular rate and rhythm. S1 and S2 heard. EXTREMITIES: Normal range of motion. No clubbing or cyanosis. Peripheral pulses intact. No lower extremity edema ASSESSMENT: #1 syncope #2 CAD #3 hypertension #4 hyperlipidemia #5 diabetes #6 migraines PLAN: Continue current cardiac medications Patient is currently stable for discharge home today from a cardiac standpoint Patient encouraged to monitor her blood pressure on an outpatient basis We will sign off. Please reconsult if needed. Nurse practitioner note has been reviewed by physician. Signing provider agrees with the documented findings, assessment, and plan of care. Objective - Vital Signs Vital signs: Vital Signs Temp 98.4 F 01/14/23 20:37 Pulse 56 L 01/15/23 03:40 Resp 16 01/15/23 03:40 BP 121/81 01/15/23 03:40 Pulse Ox 99 01/15/23 03:40 FiO2 Intake & Output 01/14/23 01/15/23 01/15/23 18:59 06:59 18:59 Intake Total 1200 540 Balance 1200 540 Weight 104.326 kg Intake: Oral 1200 540 Other: # Voids 2 222 - Labs CBC & Chem 7: 01/13/23 19:07 01/13/23 19:07 Labs: Abnormal Lab Results - Last 24 Hours (Table) 01/14/23 01/14/23 01/14/23 Range/Units 11:51 16:35 20:36 POC Glucose (mg/dL) 133 H 150 H 124 H (70-110) mg/dL 01/15/23 Range/Units 05:55 POC Glucose (mg/dL) 112 H (70-110) mg/dL
--- NOTE | 2023-01-15 14:34 | P.DS ---
Providers Date of admission: 01/13/23 21:05 Expected date of discharge: 01/15/23 Attending physician: Kimberlyn Bryant MD Primary care physician: Lina Ruvalcaba MD Hospital Course: Discharge Diagnosis: Syncope, likely due to hypoglycemia Diabetes mellitus type 2, [id number] Hypertension Dyslipidemia Hospital Course: Patient is a 67-year-old female with known diabetes mellitus type 2, hyp ertension, dyslipidemia, asthma, and migraine headaches who presented to the ER after a syncopal episode. On arrival her vital signs are within normal limits. She underwent CT head and cervical spine which revealed a scalp hematoma over the right parietal bone, mild to moderate generalized atrophy with microvascular ischemic changes, and no evidence of cervical spine fracture or traumatic malali gnment. Chest x-ray demonstrated no acute process. There was some concern that her syncopal episode may be due to hypoglycemia. She was seen by cardiology. Telemetry remained unremarkable. She underwent echocardiogram which showed ejection fraction 55 to 60% with no significant wall motion abnormalities or valvular disease. She was determined stable for discharge home. Follow-up: She will continue on her carb consistent diet. She will check her blood pressure daily. She will follow-up with her primary care physician Dr. Booth. Patient seen and examined at bedside. Denies any chest pain, shortness of breath, or recurrent syncopal episodes. We discussed that is important to not skip meals given her diabetes. Vital signs reviewed and stable. General: Nontoxic, no distress, appears at stated age Cardiovascular: S1S2 reg, no murmur, positive posterior tibial pulse bilateral, Lungs: CTA bilateral, no rhonchi, no rales, no accessory muscle use Abdominal: Soft, nontender to palpation, no guarding, no appreciable organomegaly Ext: No gross muscle atrophy, no edema b/l lower extremities, no contractures Neuro: CN II-XI grossly intact, no focal neuro deficits Psych: Alert, oriented, appropriate affect A total of 27 minutes of time were spent preparing this complex discharge summary. Patient was discharged on 01/15/23. This dictation was prepared using [id number] voice recognition software. Though every attempt is made to correct errors during dictation some may still exist. Patient Condition at Discharge: Stable Plan - Discharge Summary Discharge Rx Participant: No New Discharge Prescriptions: New Aspirin 81 mg PO DAILY tab Continue Venlafaxine HCl [Effexor XR] 150 mg PO DAILY Losartan [Cozaar] 25 mg PO DAILY Propranolol LA [Inderal LA] 60 mg PO DAILY Omeprazole 20 mg PO DAILY metFORMIN HCL 500 mg PO BID Ranolazine [Ranexa] 500 mg PO BID Erenumab-Aooe [Aimovig Autoinjector] 70 mg SQ Q30D Atorvastatin [Lipitor] 40 mg PO DAILY Rimegepant Sulfate [Nurtec Odt] 75 mg PO DAILY PRN PRN Reason: Migraine Headache Venlafaxine HCl [Effexor XR] 75 mg PO DAILY Liraglutide [Victoza 3-Virgilio] 1.8 mg SQ DAILY Montelukast [Singulair] 10 mg PO HS Albuterol Inhaler [Ventolin Hfa Inhaler] 1 - 2 puff INHALATION RT-Q6H PRN PRN Reason: Shortness Of Breath Discharge Medication List Albuterol Inhaler [Ventolin Hfa Inhaler] 1 - 2 puff INHALATION RT-Q6H PRN 01/13/23 [History] Atorvastatin [Lipitor] 40 mg PO DAILY 01/13/23 [History] Erenumab-Aooe [Aimovig Autoinjector] 70 mg SQ Q30D 01/13/23 [History] Liraglutide [Victoza 3-Virgilio] 1.8 mg SQ DAILY 01/13/23 [History] Losartan [Cozaar] 25 mg PO DAILY 01/13/23 [History] Montelukast [Singulair] 10 mg PO HS 01/13/23 [History] Omeprazole 20 mg PO DAILY 01/13/23 [History] Propranolol LA [Inderal LA] 60 mg PO DAILY 01/13/23 [History] Ranolazine [Ranexa] 500 mg PO BID 01/13/23 [History] Rimegepant Sulfate [Nurtec Odt] 75 mg PO DAILY PRN 01/13/23 [History] Venlafaxine HCl [Effexor XR] 75 mg PO DAILY 01/13/23 [History] Venlafaxine HCl [Effexor XR] 150 mg PO DAILY 01/13/23 [History] metFORMIN HCL 500 mg PO BID 01/13/23 [History] Aspirin 81 mg PO DAILY tab 01/15/23 [Rx] Follow up Appointment(s)/Referral(s): Booth,Brown, MD [REFERRING] - 1 Week None,Stated [REFERRING] - 1-2 days Activity/Diet/Wound Care/Special Instructions: Activity: As tolerated Diet: Consistent carb Special Instructions: no driving until seen by your PCP Monitor your blood pressure once daily at home Discharge Disposition: HOME SELF-CARE
[2023-01-15 17:51] VITALS: BP 95/65; PULSE 59; RESP 16; TEMP 98.3
== END 2023-01-15 17:40 | disposition home or self-care (01) ==
LOC: EC 18:43 → 3SCARD 21:05
PROVIDERS: ADMIT Internal Medicine; ATTEND Internal Medicine
DX: R55 Syncope and collapse (principal); S00.03XA Contusion of scalp, initial encounter; W18.30XA Fall on same level, unspecified, initial encounter; E11.9 Type 2 diabetes mellitus without complications; E78.5 Hyperlipidemia, unspecified; I10 Essential (primary) hypertension; F32.A Depression, unspecified; I25.10 Atherosclerotic heart disease of native coronary artery without angina pectoris; G43.909 Migraine, unspecified, not intractable, without status migrainosus; F17.200 Nicotine dependence, unspecified, uncomplicated; Z86.73 Personal history of transient ischemic attack (TIA), and cerebral infarction without residual deficits; Z79.84 Long term (current) use of oral hypoglycemic drugs; Z79.899 Other long term (current) drug therapy
CPT/HCPCS: 96372 ×3; 99285; 36415; 93005; 93306; 85379; 80053; 83735; 84484 ×2; 85025; 85610; 85730; 81001; 83036; 71046; 72125; 70450; G0378 ×3; J1644 ×2

== ENCOUNTER 2024-07-21 10:03 | Inpatient (IN) | payer MEDICARE, OTHER ==
--- NOTE | 2024-07-21 10:56 | ED ---
Recheck HPI - General Chief Complaint: Recheck/Abnormal Lab/Rx Stated Complaint: E. coli Time Seen by Provider: 07/21/24 10:21 Source: patient, RN notes reviewed Mode of arrival: ambulatory Limitations: no limitations - History of Present Illness Initial Comments: This is a 69-year-old female with history including CAD, CVA AND DM presenting f or positive blood cultures. Patient states she was at [facility] yesterday due to a fever and treated for a UTI. States she was called today and informed that her blood culture was positive for E. coli and to return to the nearest ER. Patient endorses receiving IV Rocephin yesterday and had p.o. Keflex sent to the pharmacy but has not started taking it yet. Patient endorses both nausea and diarrhea today both since resolved. Patient denies any current fever, chills, chest pain, dyspnea, abdominal pain, hematochezia, melena. MD Complaint: abnormal lab Onset/Timin -: days(s) Associated Symptoms: fever, nausea, other (Diarrhea) Treatments Prior to Arrival: Given Antibiotics on (Rocephin given yesterday) - Related Data Home Medications Medication Instructions Recorded Confirmed Atorvastatin [Lipitor] 40 mg PO DAILY 01/13/23 07/21/24 Erenumab-Aooe [Aimovig 70 mg SQ Q30D 01/13/23 07/21/24 Autoinjector] Liraglutide [Victoza 3-Virgilio] 1.8 mg SQ DAILY 01/13/23 07/21/24 Losartan [Cozaar] 25 mg PO DAILY 01/13/23 07/21/24 Montelukast [Singulair] 10 mg PO HS 01/13/23 07/21/24 Omeprazole 20 mg PO DAILY 01/13/23 07/21/24 Propranolol LA [Inderal LA] 60 mg PO DAILY 01/13/23 07/21/24 Ranolazine [Ranexa] 500 mg PO DAILY 01/13/23 07/21/24 Venlafaxine HCl [Effexor XR] 75 mg PO DAILY 01/13/23 07/21/24 Venlafaxine HCl [Effexor XR] 150 mg PO DAILY 01/13/23 07/21/24 metFORMIN HCL 500 mg PO BID 01/13/23 07/21/24 Aspirin EC [Ecotrin Low Dose] 81 mg PO DAILY 07/21/24 07/21/24 Dapagliflozin Propanediol [Farxiga] 5 mg PO DAILY 07/21/24 07/21/24 Ibuprofen [Motrin] 600 mg PO TID 07/21/24 07/21/24 Ubrogepant [Ubrelvy] 100 mg PO DAILY PRN 07/21/24 07/21/24 Allergies Allergy/AdvReac Type Severity Reaction Status Date / Time milk AdvReac Intermediate Diarrhea Verified 07/21/24 14:28 milk AdvReac Diarrhea Uncoded 07/21/24 14:28 Review of Systems ROS Statement: Those systems with pertinent positive or pertinent negative responses have been documented in the HPI. ROS Other: All systems not noted in ROS Statement are negative. Past Medical History Past Medical History: Asthma, Coronary Artery Disease (CAD), CVA/TIA, Diabetes Mellitus, Hyperlipidemia, Hypertension History of Any Multi-Drug Resistant Organisms: None Reported Past Surgical History: Cholecystectomy, Heart Catheterization, Orthopedic Surgery Additional Past Surgical History / Comment(s): right elbow surgery, rotator cuff, knee surgery, gastric bypass, Past Anesthesia/Blood Transfusion Reactions: No Reported Reaction Past Psychological History: Depression Smoking Status: Never smoker Past Alcohol Use History: None Reported Past Drug Use History: None Reported - Past Family History Mother Family Medical History: Coronary Artery Disease (CAD), Dementia, Diabetes Mellitus Father Family Medical History: Coronary Artery Disease (CAD), CVA/TIA, Diabetes Mellitus General Exam Limitations: no limitations General appearance: alert, in no apparent distress Head exam: Present: atraumatic, normocephalic, normal inspection Eye exam: Present: normal appearance, PERRL, EOMI. Absent: scleral icterus, conjunctival injection, periorbital swelling ENT exam: Present: normal exam, mucous membranes moist Neck exam: Present: normal inspection. Absent: tenderness, meningismus, lymphadenopathy Respiratory exam: Present: normal lung sounds bilaterally. Absent: respiratory distress, wheezes, rales, rhonchi, stridor, accessory muscle use, decreased breath sounds, prolonged expiratory Cardiovascular Exam: Present: regular rate, normal rhythm, normal heart sounds. Absent: systolic murmur, diastolic murmur, rubs, gallop, clicks GI/Abdominal exam: Present: soft, normal bowel sounds. Absent: distended, tenderness, guarding, rebound, rigid Extremities exam: Present: normal inspection, full ROM, normal capillary refill. Absent: tenderness, pedal edema, joint swelling, calf tenderness Back exam: Present: normal inspection Neurological exam: Present: alert, oriented X3, CN II-XII intact Psychiatric exam: Present: normal affect, normal mood Skin exam: Present: warm, dry, intact, normal color. Absent: rash Course Vital Signs 07/21/24 07/21/24 07/21/24 10:22 13:31 16:00 Temperature 97.9 F Pulse Rate 106 H 81 85 Respiratory 16 18 16 Rate Blood Pressure 129/86 111/42 96/65 O2 Sat by Pulse 97 99 100 Oximetry 07/21/24 18:50 Temperature 98.9 F Pulse Rate 91 Respiratory 18 Rate Blood Pressure 101/65 O2 Sat by Pulse 96 Oximetry Medical Decision Making - Medical Decision Making Was pt. sent in by a medical professional or institution (, PA, STRUCTURAL WORKER, urgent care, hospital, or long-term...) When possible be specific @ -[facility] Did you speak to anyone other than the patient for history (EMS, parent, family, police, friend...)? What history was obtained from this source @ -No Did you review nursing and triage notes (agree or disagree)? Why? @ -I reviewed and agree with nursing and triage notes Were old charts reviewed (outside hosp., previous admission, EMS record, old EKG, old radiological studies, urgent care reports/EKG's, long-term records)? Report findings @ -Paperwork provided from [facility] indicating bacteremia with E. coli Differential Diagnosis (chest pain, altered mental status, abdominal pain women, abdominal pain men, vaginal bleeding, weakness, fever, dyspnea, syncope, head ache, dizziness, GI bleed, back pain, seizure, CVA, palpatations, mental health, musculoskeletal)? @ -Differential Fever: Pneumonia, viral URI, endocarditis, myocarditis, pericarditis, otitis, sinusi tis, peritonsillar Abscess, retropharyngeal Abscess, epiglottitis, peritonitis, appendicitis, Narda cystitis, diverticulitis, hepatitis, colitis, UTI, PID, TOA, pyelonephritis, prostatitis, epididymitis, meningitis, encephalitis, pulmonary embolism, CVA, thyroid storm, pancreatitis, adrenal crisis, cavernous sinus thrombosis, this is not meant to be an all-inclusive list. EKG interpreted by me (3pts min.). @ -Not done X-rays interpreted by me (1pt min.). @ -None done CT interpreted by me (1pt min.). @ -None done U/S interpreted by me (1pt. min.). @ -None done What testing was considered but not performed or refused? (CT, X-rays, U/S, labs)? Why? @ -None What meds were considered but not given or refused? Why? @ -None Did you discuss the management of the patient with other professionals (professionals i.e. DrMisti, PA, STRUCTURAL WORKER, lab, RT, psych nurse, psychosocial rehabilitation counselor, accredited legal secretary, teacher, parole hearing officer, pillowcase cleaner)? Give summary @ -Spoke to Dr. Manley for patient admission. Was smoking cessation discussed for >3mins.? @ -No Was critical care preformed (if so, how long)? @ -No Were there social determinants of health that impacted care today? How? (Homelessness, low income, unemployed, alcoholism, drug addiction, transportation, low edu. Level, literacy, decrease access to med. care, residential, r ehab)? @ -No Was there de-escalation of care discussed even if they declined (Discuss DNR or withdrawal of care, Hospice)? DNR status @ -No What co-morbidities impacted this encounter? (DM, HTN, Smoking, COPD, CAD, Cancer, CVA, ARF, Chemo, Hep., AIDS, mental health diagnosis, sleep apnea, morbid obesity)? @ -None Was patient admitted / discharged? Hospital course, mention meds given and route, prescriptions, significant lab abnormalities, going to OR and other pertinent info. @ -Patient initially provided IV normal saline. Lab work virtually unremarkable with WBC 11.49, BUN 19 and glucose 180. Lactic acid 1.6 and C. difficile culture negative. UA positive for UTI, glycosuria and trace ketonuria/hematuria. Paperwork from [facility] obtained indicating blood cultures positive for E. coli. Patient provided Rocephin IVPB and lactated Ringer's. Spoke to Dr. Manley for patient admission. Discussed patient with Dr. Chisholm. Undiagnosed new problem with uncertain prognosis? @ -No Drug Therapy requiring intensive monitoring for toxicity (Heparin, Nitro, Insulin, Cardizem)? @ -No Were any procedures done? @ -No Diagnosis/symptom? @ -Bacteremia (E. coli) Acute, or Chronic, or Acute on Chronic? @ -Acute Uncomplicated (without systemic symptoms) or Complicated (systemic symptoms)? @ -Complicated Side effects of treatment? @ -No Exacerbation, Progression, or Severe Exacerbation? @ -No Poses a threat to life or bodily function? How? (Chest pain, [place], [place], pneumonia, PE, COPD, DKA, ARF, appy, cholecystitis, CVA, Diverticulitis, Homicidal, Suicidal, threat to staff... and all critical care pts) @ -Bacteremia, possibility for sepsis - Lab Data Result diagrams: 07/21/24 11:16 07/21/24 11:16 Lab Results 07/21/24 07/21/24 07/21/24 Range/Units 11:16 11:16 11:16 WBC 11.49 H (4.50-10.00) 10*3/uL RBC 4.67 (4.10-5.20) 10*6/uL Hgb 14.4 (12.0-15.0) g/dL Hct 42.8 (37.2-46.3) % MCV 91.6 (80.0-97.0) fL MCH 30.8 (27.0-32.0) pg MCHC 33.6 (32.0-37.0) g/dL Plt Count 225 (140-440) 10*3/uL MPV 10.3 (9.5-12.2) fL Immature Gran % (Auto) 0.4 % Neutrophils % 74.4 % Lymphocytes % 14.3 % Monocytes % 9.6 % Eosinophils % 0.8 % Basophils % 0.5 % Immature Gran # 0.05 H (0.00-0.04) 10*3/uL Neutrophils # 8.55 H (1.80-7.70) 10*3/uL Lymphocytes # 1.64 (0.90-5.00) 10*3/uL Monocytes # 1.10 H (0.20-1.00) 10*3/uL Eosinophils # 0.09 (0.04-0.35) 10*3/uL Basophils # 0.06 (0.00-0.10) 10*3/uL Sodium 138 (137-145) mmol/L Potassium 4.4 (3.5-5.1) mmol/L Chloride 109 H (98-107) mmol/L Carbon Dioxide 18 L (22-30) mmol/L Anion Gap 11 mmol/L BUN 19 H (7-17) mg/dL Creatinine 0.69 (0.52-1.04) mg/dL Est GFR (CKD-EPI)AfAm >90 (>60 ml/min/1.73 sqM) Est GFR (CKD-EPI)NonAf >90 (>60 ml/min/1.73 sqM) Glucose 180 H (74-99) mg/dL Plasma Lactic Acid Larry 1.6 (0.7-2.0) mmol/L Calcium 9.0 (8.4-10.2) mg/dL Total Bilirubin 1.0 (0.2-1.3) mg/dL AST 36 (14-36) U/L ALT 25 (4-34) U/L Alkaline Phosphatase 81 (38-126) U/L Total Protein 6.3 (6.3-8.2) g/dL Albumin 3.6 (3.5-5.0) g/dL Urine Color Urine Appearance (Clear) Urine pH (5.0-8.0) Ur Specific [place] (1.001-1.035) Urine Protein (Negative) Urine Glucose (UA) (Negative) Urine Ketones (Negative) Urine Blood (Negative) Urine Nitrite (Negative) Urine Bilirubin (Negative) Urine Urobilinogen (<2.0) mg/dL Ur Leukocyte Esterase (Negative) Urine RBC (0-5) /hpf Urine WBC (0-5) /hpf Ur Squamous Epith Cells (0-4) /hpf Urine Bacteria (None) /hpf /16/ Range/Units 12:57 WBC (4.50-10.00) 10*3/uL RBC (4.10-5.20) 10*6/uL Hgb (12.0-15.0) g/dL Hct (37.2-46.3) % MCV (80.0-97.0) fL MCH (27.0-32.0) pg MCHC (32.0-37.0) g/dL Plt Count (140-440) 10*3/uL MPV (9.5-12.2) fL Immature Gran % (Auto) % Neutrophils % % Lymphocytes % % Monocytes % % Eosinophils % % Basophils % % Immature Gran # (0.00-0.04) 10*3/uL Neutrophils # (1.80-7.70) 10*3/uL Lymphocytes # (0.90-5.00) 10*3/uL Monocytes # (0.20-1.00) 10*3/uL Eosinophils # (0.04-0.35) 10*3/uL Basophils # (0.00-0.10) 10*3/uL Sodium (137-145) mmol/L Potassium (3.5-5.1) mmol/L Chloride (98-107) mmol/L Carbon Dioxide (22-30) mmol/L Anion Gap mmol/L BUN (7-17) mg/dL Creatinine (0.52-1.04) mg/dL Est GFR (CKD-EPI)AfAm (>60 ml/min/1.73 sqM) Est GFR (CKD-EPI)NonAf (>60 ml/min/1.73 sqM) Glucose (74-99) mg/dL Plasma Lactic Acid Larry (0.7-2.0) mmol/L Calcium (8.4-10.2) mg/dL Total Bilirubin (0.2-1.3) mg/dL AST (14-36) U/L ALT (4-34) U/L Alkaline Phosphatase (38-126) U/L Total Protein (6.3-8.2) g/dL Albumin (3.5-5.0) g/dL Urine Color Yellow Urine Appearance Cloudy H (Clear) Urine pH 6.0 (5.0-8.0) Ur Specific [place] 1.014 (1.001-1.035) Urine Protein Trace H (Negative) Urine Glucose (UA) 3+ H (Negative) Urine Ketones 1+ H (Negative) Urine Blood Small H (Negative) Urine Nitrite Negative (Negative) Urine Bilirubin Negative (Negative) Urine Urobilinogen 3.0 (<2.0) mg/dL Ur Leukocyte Esterase Large H (Negative) Urine RBC 15 H (0-5) /hpf Urine WBC 85 H (0-5) /hpf Ur Squamous Epith Cells 4 (0-4) /hpf Urine Bacteria Rare H (None) /hpf Disposition Clinical Impression: E coli bacteremia Disposition: ADMITTED IP TO THIS HOSP Condition: Fair Is patient prescribed a controlled substance at d/c from ED?: No Time of Disposition: 16:30 Decision Date: 07/21/24 Decision Time: 16:30
[2024-07-21 11:30] LABS: Basophils # (A) 0.06 10*3/uL (0.00-0.10); Basophils % (A) 0.5 %; Eosinophils # (A) 0.09 10*3/uL (0.04-0.35); Eosinophils % (A) 0.8 %; HCT 42.8 % (37.2-46.3); HGB 14.4 g/dL (12.0-15.0); Lymphocytes # (A) 1.64 10*3/uL (0.90-5.00); Lymphocytes % (A) 14.3 %; MCH 30.8 pg (27.0-32.0); MCHC 33.6 g/dL (32.0-37.0); MCV 91.6 fL (80.0-97.0); Mean Platelet Volume 10.3 fL (9.5-12.2); Monocytes % (A) 9.6 %; Neutrophils # (A) 8.55 10*3/uL (1.80-7.70); Neutrophils % (A) 74.4 %; Platelet Count 225 10*3/uL (140-440); RBC 4.67 10*6/uL (4.10-5.20); RDW 13.3 % (11.5-14.5); WBC 11.49 10*3/uL (4.50-10.00)
[2024-07-21 11:36] LABS: ALT 25 U/L (4-34); African American GFR (CKD) >90 (>60 ml/min/1.73 sqM); Albumin 3.6 g/dL (3.5-5.0); Anion Gap 11 mmol/L; Blood Urea Nitrogen 19 mg/dL (7-17); Carbon Dioxide 18 mmol/L (22-30); Chloride 109 mmol/L (98-107); Glucose 180 mg/dL (74-99); Non-African American GFR(CKD) >90 (>60 ml/min/1.73 sqM); Sodium 138 mmol/L (137-145); Total Protein 6.3 g/dL (6.3-8.2)
[2024-07-21 11:37] LABS: AST 36 U/L (14-36); Alkaline Phosphatase 81 U/L (38-126); Potassium 4.4 mmol/L (3.5-5.1)
[2024-07-21] MEDS: SODIUM CHLORIDE 0.9% 1,000 ML IV STA ×2 (12:49→14:05)
[2024-07-21 13:30] LABS: Appearance,Urine Cloudy (Clear); Bacteria,Urine Rare /hpf; Bilirubin,Urine Negative (Negative); Blood,Urine Small (Negative); Color,Urine Yellow; Glucose,Urine (UA) 3+ (Negative); Ketones,Urine 1+ (Negative); Leukocyte Esterase,Urine Large (Negative); Nitrite,Urine Negative (Negative); Protein,Urine Trace (Negative); RBC,Urine 15 /hpf (0-5); Specific Gravity,Urine 1.014 (1.001-1.035); Squamous Epithelial Cell,Urine 4 /hpf (0-4); WBC,Urine 85 /hpf (0-5)
[2024-07-21] MEDS: LACTATED RINGERS 1,000 ML IV SCH (17:00)
[2024-07-21] MEDS ORDERED: NALOXONE 0.4 MG/ML 1 ML VIAL IV PRN (17:10)
[2024-07-21] MEDS ORDERED: MORPHINE SULFATE 4 MG/ML SYRINGE IV PRN (17:10)
[2024-07-21] MEDS ORDERED: NON FORMULARY DRUG (Ubrogepant [Ubrelvy] 100 MG Tablet) PO PRN (17:12)
[2024-07-21] MEDS ORDERED: DEXTROSE 50% SYRINGE 50 ML IVP PRN ×2 (20:12)
--- NOTE | 2024-07-21 20:15 | P.HPIM ---
History of Present Illness H&P Date: 07/21/24 Chief Complaint: E. coli positive blood culture Pleasant 69-year-old patient follows Dr. Lina Ruvalcaba. Chronic medical conditions include stroke in the remote past with no residual, diabetes, hypertension, hyperlipidemia, osteoarthritis. Gastric bypass. De pression. Patient is had a cardiac catheterization and she was told she is good blockage of the small arteries but no major artery. Patient yesterday developed a fever went to [facility]. And she was discharged from there. Later she was told to come in because blood cultures were positive for E. coli. Appetite is fair. Patient has some upper respite tract congested cough. Slight minimal sputum. Appetite is fair. Denies any obvious urinary symptoms. No abdominal pain. Review of systems: GEN.: A bit tired EYES: None HEENT: None NECK: None RESPIRATORY: As above CARDIOVASCULAR: None GASTROINTESTINAL: None GENITOURINARY: None MUSCULOSKELETAL: Joint pains e LYMPHATICS: None HEMATOLOGICAL: None PSYCHIATRY: None NEUROLOGICAL: None Social history: Lives with her daughter, son-in-law, grandchildren. Denies any smoking alcohol Physical examination: VITAL SIGNS: 97.9, 106, 16, 129 x 86, 97% room air GENERAL: BMI 39.3, lying bed awake not in distress. EYES: Pupils equal. Conjunctiva yaakov l. HEENT: External appearance of nose and ears normal, oral cavity grossly normal. NECK: JVD not raised; masses not palpable. HEART: First and second heart sounds are normal; no edema. LUNGS: Respiratory rate normal; clear to auscultation. ABDOMEN: Soft, nontender, liver spleen not palpable, no masses palpable. PSYCH: Alert and oriented x3; mood and affect yaakov l. MUSCULOSKELETAL:No Clubbing/cyanosis;muscles-grossly intact. OA NEUROLOGICAL: Cranial nerves grossly intact; no facial asymmetry, power and sensation grossly intact. LYMPHATICS: No lymph nodes palpable in the axilla and neck INVESTIGATIONS, reviewed in the clinical context: July 21, 2024: White count 11.4 hemoglobin 14.4 platelets 225 sodium 138 potassium 4.4 bicarb 18 BUN 19 creatinine 0.69 UA: Negative for nitrite. Large leukoesterase. Squamous epithelial cells 4 C. difficile: Negative Assessment plan: - Patient presented yesterday to review Testostroval episode of fever. Blood cultures come back positive for E. coli. Patient denies any urinary symptoms. Does have a congested cough.: Bacteremia Patient denies any abdominal pain. IV ceftriaxone. Repeat blood cultures. - Obesity BMI 39.3 Weight loss measures - Diabetes mellitus type 2 on oral hypoglycemic Farxiga. Metformin. Victoza sliding scale with Accu-Cheks - Hyperlipidemia Lipitor 40 mg a day - Essential hypertension Cozaar 25 mg. Inderal LA 60 mg a day. - Primary osteoarthritis multiple joints Pain medications - Depression Effexor XR - Coronary artery disease nonobstructive per cardiac catheterization Ranexa. Inderal LA. Cozaar. - Full code Given the complexity and severity of patient's condition expect the patient to be in the hospital at least for 2 overnights. Patient had positive blood culture E. coli. Source is unknown. Has some respiratory symptoms. No urinary symptoms. Repeat blood cultures are drawn we will keep the patient on IV antibiotics till then. Has an elevated white count. Past Medical History Past Medical History: Asthma, Coronary Artery Disease (CAD), CVA/TIA, Diabetes Mellitus, Hyperlipidemia, Hypertension History of Any Multi-Drug Resistant Organisms: None Reported Past Surgical History: Cholecystectomy, Heart Catheterization, Orthopedic Surgery Additional Past Surgical History / Comment(s): right elbow surgery, rotator cuff, knee surgery, gastric bypass, Past Anesthesia/Blood Transfusion Reactions: No Reported Reaction Past Psychological History: Depression Smoking Status: Never smoker Past Alcohol Use History: None Reported Past Drug Use History: None Reported - Past Family History Mother Family Medical History: Coronary Artery Disease (CAD), Dementia, Diabetes Mellitus Father Family Medical History: Coronary Artery Disease (CAD), CVA/TIA, Diabetes Mellitus Medications and Allergies Home Medications Medication Instructions Recorded Confirmed Type Atorvastatin [Lipitor] 40 mg PO DAILY 01/13/23 07/21/24 History Erenumab-Aooe [Aimovig 70 mg SQ Q30D 01/13/23 07/21/24 History Autoinjector] Liraglutide [Victoza 3-Virgilio] 1.8 mg SQ DAILY 01/13/23 07/21/24 History Losartan [Cozaar] 25 mg PO DAILY 01/13/23 07/21/24 History Montelukast [Singulair] 10 mg PO HS 01/13/23 07/21/24 History Omeprazole 20 mg PO DAILY 01/13/23 07/21/24 History Propranolol LA [Inderal LA] 60 mg PO DAILY 01/13/23 07/21/24 History Ranolazine [Ranexa] 500 mg PO DAILY 01/13/23 07/21/24 History Venlafaxine HCl [Effexor XR] 75 mg PO DAILY 01/13/23 07/21/24 History Venlafaxine HCl [Effexor XR] 150 mg PO DAILY 01/13/23 07/21/24 History metFORMIN HCL 500 mg PO BID 01/13/23 07/21/24 History Aspirin EC [Ecotrin Low Dose] 81 mg PO DAILY 07/21/24 07/21/24 History Dapagliflozin Propanediol [Farxiga] 5 mg PO DAILY 07/21/24 07/21/24 History Ibuprofen [Motrin] 600 mg PO TID 07/21/24 07/21/24 History Ubrogepant [Ubrelvy] 100 mg PO DAILY PRN 07/21/24 07/21/24 History Allergies Allergy/AdvReac Type Severity Reaction Status Date / Time milk AdvReac Intermediate Diarrhea Verified 07/21/24 14:28 milk AdvReac Diarrhea Uncoded 07/21/24 14:28 Physical Exam Vitals: Vital Signs Temp Pulse Resp BP Pulse Ox 07/21/24 18:50 98.9 F 91 18 101/65 96 07/21/24 16:00 85 16 96/65 100 07/21/24 13:31 81 18 111/42 99 07/21/24 10:22 97.9 F 106 H 16 129/86 97 Intake and Output 07/21/24 07/21/24 07/21/24 06:59 14:59 22:59 Other: Weight 100.698 kg Results CBC & Chem 7: 07/21/24 11:16 07/21/24 11:16 Labs: Abnormal Lab Results - Last 24 Hours (Table) 07/21/24 07/21/24 07/21/24 Range/Units 11:16 11:16 12:57 WBC 11.49 H (4.50-10.00) 10*3/uL Immature Gran # 0.05 H (0.00-0.04) 10*3/uL Neutrophils # 8.55 H (1.80-7.70) 10*3/uL Monocytes # 1.10 H (0.20-1.00) 10*3/uL Chloride 109 H (98-107) mmol/L Carbon Dioxide 18 L (22-30) mmol/L BUN 19 H (7-17) mg/dL Glucose 180 H (74-99) mg/dL Urine Appearance Cloudy H (Clear) Urine Protein Trace H (Negative) Urine Glucose (UA) 3+ H (Negative) Urine Ketones 1+ H (Negative) Urine Blood Small H (Negative) Ur Leukocyte Esterase Large H (Negative) Urine RBC 15 H (0-5) /hpf Urine WBC 85 H (0-5) /hpf Urine Bacteria Rare H (None) /hpf
--- NOTE | 2024-07-21 20:51 | XR ---
EXAMINATION TYPE: XR chest 2V DATE OF EXAM: 07/21/2024 8:47 PM COMPARISON: Chest radiograph 01/13/2023. CLINICAL INDICATION: Female, 69 years old with history of Con gested cough; [facility] TECHNIQUE: XR chest 2V Frontal and lateral views of the chest. FINDINGS: Lungs/Pleura: There is no evidence of pleural effusion, focal consolidation, or pneumothorax. Hyperi nflated lungs bilaterally with coarsening of the interstitial markings and mild flattening of the hem idiaphragms. Pulmonary vascularity: Unremarkable. Heart/mediastinum: Cardiomediastinal silhouette is unremarkable. Musculoskeletal: No acute osseous pathology. Previous right-sided rotator cuff repair. Other findings: None IMPRESSION: 1. No acute cardiopulmonary disease/process. 2. Findings suggestive of COPD. [facility], , 07/21/2024 8:49 PM
[2024-07-21 20:58] LABS: Glucose,Whole Blood 146 mg/dL (70-110)
[2024-07-21] MEDS: INSULIN LISPRO (HumaLOG) 100 UNIT/ML 10 mL VL SQ SCH (21:03)
[2024-07-21] MEDS: metFORMIN 500 MG TAB PO SCH (21:48)
[2024-07-22] MEDS: ACETAMINOPHEN TAB 325 MG TAB PO PRN (03:29)
[2024-07-22 08:18] LABS: Glucose,Whole Blood 138 mg/dL (70-110)
[2024-07-22] MEDS: LOSARTAN 25 MG TAB PO SCH (08:24)
[2024-07-22] MEDS: ONDANSETRON 4 MG/2 ML VIAL IVP PRN (08:24)
[2024-07-22] MEDS: ASPIRIN 81 MG PO SCH (08:24)
[2024-07-22] MEDS: DAPAGLIFLOZIN PROPANEDIOL 5 MG TABLET PO SCH (08:25)
[2024-07-22] MEDS: VENLAFAXINE HCL ER 75 MG CAP PO SCH (08:25)
[2024-07-22] MEDS: ENOXAPARIN 40 MG/0.4 ML SYRINGE SQ SCH (08:25)
[2024-07-22] MEDS: ATORVASTATIN 40 MG TAB PO SCH (08:25)
[2024-07-22] MEDS: NON FORMULARY DRUG (Liraglutide [Victoza 3-Pak] 0.6 MG/0.1 ML Ml) SQ SCH (08:34)
[2024-07-22] MEDS: PROPRANOLOL LA 60 MG CAP.SA.24H PO SCH (09:01)
[2024-07-22 12:19] LABS: Glucose,Whole Blood 163 mg/dL (70-110)
[2024-07-22] MEDS: PROCHLORPERAZINE INJ 10 MG/2 ML VIAL IVP STA (16:48)
[2024-07-22 17:01] LABS: Glucose,Whole Blood 126 mg/dL (70-110)
[2024-07-22] MEDS: IOPAMIDOL CONTRAST (ORAL USE) VIAL PO PRN (17:10)
--- NOTE | 2024-07-22 18:20 | P.PN ---
Progress Note - Text Progress Note Date: 07/22/24 Chief Complaint: E. coli positive blood culture Pleasant 69-year-old patient follows Dr. Lina Ruvalcaba. Chronic medical conditions include stroke in the remote past with no residual, diabetes, hypertension, hyperlipidemia, osteoarthritis. Gastric bypass. Depression. Patient is had a cardiac catheterization and she was told she is good blockage of the small arteries but no major artery. Patient yesterday developed a fever went to [facility]. And she was discharged from there. Later she was told to come in because blood cultures were positive for E. coli. Appetite is fair. Patient has some upper respite tract congested cough. Slight minimal sputum. Appetite is fair. Denies any obvious urinary symptoms. No abdominal pain. July 22: Patient had 1 bout of loose stool today. Patient had no obvious source of E. coli. Will do CT scan abdomen pelvis with contrast to rule out any abdominal cause. IV ceftriaxone to continue. No fever. Does feel a bit tired. Did eat all her lunch Active Medications Acetaminophen (Acetaminophen Tab 325 Mg Tab) 650 mg PO Q6HR PRN PRN Reason: Mild Pain or Fever > 100.5 Last Admin: 07/22/24 03:29 Dose: 650 mg Aspirin (Aspirin 81 Mg) 81 mg PO DAILY [facility] Last Admin: 07/22/24 08:24 Dose: 81 mg Atorvastatin Calcium (Atorvastatin 40 Mg Tab) 40 mg PO DAILY [facility] Last Admin: 07/22/24 08:25 Dose: 40 mg Dapagliflozin (Dapagliflozin Propanediol 5 Mg Tablet) 5 mg PO DAILY [facility] Last Admin: 07/22/24 08:25 Dose: 5 mg Dextrose/Water (Dextrose 50% Syringe 50 Ml) 25 ml IVP PER PROTOCOL PRN; Protocol PRN Reason: Hypoglycemia Dextrose/Water (Dextrose 50% Syringe 50 Ml) 50 ml IVP PER PROTOCOL PRN; Protocol PRN Reason: Hypoglycemia Enoxaparin Sodium (Enoxaparin 40 Mg/0.4 Ml Syringe) 40 mg SQ DAILY [facility] Last Admin: 07/22/24 08:25 Dose: 40 mg Lactated Ringer's (Lactated Ringers) 1,000 mls @ 100 mls/hr IV .Q10H [facility] Last Admin: 07/22/24 12:35 Dose: Not Given Ceftriaxone Sodium 2 gm/ (Sodium Chloride) 50 mls @ 100 mls/hr IVPB Q24HR [facility]; Protocol Last Admin: 07/22/24 18:10 Dose: 100 mls/hr Insulin Human Lispro (Insulin Lispro (Humalog) 100 Unit/Ml 10 Ml Vl) 0 unit SQ AC-TID [facility]; Protocol Last Admin: 07/22/24 17:12 Dose: Not Given Losartan Potassium (Losartan 25 Mg Tab) 25 mg PO DAILY [facility] Last Admin: 07/22/24 08:24 Dose: 25 mg Metformin HCl (Metformin 500 Mg Tab) 500 mg PO BID [facility] Last Admin: 07/22/24 08:24 Dose: 500 mg Morphine Sulfate (Morphine Sulfate 4 Mg/Ml Syringe) 4 mg IV Q4HR PRN PRN Reason: Severe Pain (Scale 7 to 10) Naloxone HCl (Naloxone 0.4 Mg/Ml 1 Ml Vial) 0.2 mg IV Q2M PRN PRN Reason: Opioid Reversal Non-Formulary Medication (Liraglutide [Victoza 3-Virgilio]) 1.8 mg SQ DAILY [facility] Last Admin: 07/22/24 08:34 Dose: Not Given Non-Formulary Medication (Ubrogepant [Ubrelvy]) 100 mg PO DAILY PRN PRN Reason: Migraine Headache Ondansetron HCl (Ondansetron 4 Mg/2 Ml Vial) 4 mg IVP Q8HR PRN PRN Reason: Nausea And Vomiting Last Admin: 07/22/24 08:24 Dose: 4 mg Propranolol HCl (Propranolol La 60 Mg Cap.Sa.24h) 60 mg PO DAILY [facility] Last Admin: 07/22/24 09:01 Dose: 60 mg Venlafaxine HCl (Venlafaxine Hcl Er 75 Mg Cap) 75 mg PO DAILY [facility] Last Admin: 07/22/24 08:25 Dose: 75 mg Social history: Lives with her daughter, son-in-law, grandchildren. Denies any smoking alcohol Physical examination: VITAL SIGNS: 97.7, 71, 16, 95 x 76, 97% room GENERAL: BMI 39.3, resting in bed EYES: Pupils equal. Conjunctiva yaakov l. HEENT: External appearance of nose and ears normal, oral cavity grossly normal. NECK: JVD not raised; masses not palpable. HEART: First and second heart sounds are normal; no edema. LUNGS: Respiratory rate normal; clear to auscultation. ABDOMEN: Soft, nontender, liver spleen not palpable, no masses palpable. PSYCH: Alert and oriented x3; mood and affect yaakov l. MUSCULOSKELETAL:No Clubbing/cyanosis;muscles-grossly intact. OA INVESTIGATIONS, reviewed in the clinical context: July 21, 2024: White count 11.4 hemoglobin 14.4 platelets 225 sodium 138 potassium 4.4 bicarb 18 BUN 19 creatinine 0.69 UA: Negative for nitrite. Large leukoesterase. Squamous epithelial cells 4 C. difficile: Negative Assessment plan: - Patient presented yesterday to [facility] with l episode of fever. Blood cultures come back positive for E. coli. Patient denies any urinary symptoms. Does have a congested cough.: Bacteremia Patient denies any abdominal pain. Did have 1 bout of loose stool. IV ceftriaxone. Repeat blood cultures. CT scan abdomen pelvis with contrast - Obesity BMI 39.3 Weight loss measures - Diabetes mellitus type 2 on oral hypoglycemic Farxiga. Metformin. Victoza sliding scale with Accu-Cheks - Hyperlipidemia Lipitor 40 mg a day - Essential hypertension Cozaar 25 mg. Inderal LA 60 mg a day. - Primary osteoarthritis multiple joints Pain medications - Depression Effexor XR - Coronary artery disease nonobstructive per cardiac catheterization Ranexa. Inderal LA. Cozaar. - Full code Continue IV ceftriaxone. CT scan abdomen pelvis. Discussed with patient. Past Medical History Past Medical History: Asthma, Coronary Artery Disease (CAD), CVA/TIA, Diabetes Mellitus, Hyperlipidemia, Hypertension History of Any Multi-Drug Resistant Organisms: None Reported Past Surgical History: Cholecystectomy, Heart Catheterization, Orthopedic Surgery Additional Past Surgical History / Comment(s): right elbow surgery, rotator cuff, knee surgery, gastric bypass, Past Anesthesia/Blood Transfusion Reactions: No Reported Reaction Past Psychological History: Depression Smoking Status: Never smoker Past Alcohol Use History: None Reported Past Drug Use History: None Reported
--- NOTE | 2024-07-22 20:01 | CT ---
EXAMINATION TYPE: CT chest angio for PE DATE OF EXAM: 07/22/2024 6:59 PM COMPARISON: None. CLINICAL INDICATION: Female, 69 years old with history of Short of breath, sepsis, abdomen pain, naus ea, TECHNIQUE: CT of the chest is performed on a spiral scan at 2 mm thick sections. Study is performed with intravenous contrast timed for evaluation for pulmonary embolism. This will limit additional po rtions of the evaluation. 10mm MIP images reconstructed by the technologist are reviewed on the comp uter in the coronal and sagittal planes. Contrast used:100 ml mL of Isovue 370 with IV Contrast, (none if empty) Oral contrast used: (none if empty) CT DLP: 661.8 mGycm, Automated exposure control for dose reduction was used. FINDINGS: No persistent filling defects are evident to suggest an acute pulmonary embolism. No mediastinal or hilar adenopathy enlarged by CT criteria is evident. The ascending aorta diameter at the level of the main pulmonary artery is 3.8 cm. The main pulmonary artery diameter at the bifurcation is 2.9 cm. There is a 0.5 cm nodule within the azygos esophageal recess. Image 63 No significant coronary artery calcifications. Limited CT sections were through the upper abdomen. There is a small hiatal hernia. IMPRESSION: 1. No acute pulmonary embolism. 2. No acute pulmonary process. 3. 0.5 cm nodule as ago esophageal recess. Follow-up exam in 6 months recommended. 4. Small hiatal hernia [facility], , 07/22/2024 7:58 PM
--- NOTE | 2024-07-22 20:06 | CT ---
EXAMINATION TYPE: CT abdomen pelvis w con DATE OF EXAM: 07/22/2024 7:00 PM COMPARISON: None. CLINICAL INDICATION: Female, 69 years old with history of sepsis, Abdomen pain, nausea, sepsis, abdom en pain, nausea TECHNIQUE: Axial images were obtained from above the diaphragm to the pubic rami in the axial plane a t 5 mm thick sections. Reconstructed images are reviewed on the computer in the coronal plane. CONTRAST: 100 ml mL of Isovue 370. Study performed with Oral Contrast DLP: 1926.3 mGycm, Automated exposure control for dose reduction was used. FINDINGS: Limited CT sections are obtained the lung bases. The lung bases are clear. CT ABDOMEN: Liver: Normal Spleen: Normal Pancreas: Normal Adrenal glands: The adrenal glands are normal. Gallbladder: Not identified Kidneys: No masses are evident. No hydronephrosis is present. No cysts are present. Delayed images were obtained through the kidneys, which remain unremarkable. Aorta: Vascular calcification is within the aorta. Inferior vena cava: There is a filter within the inferior vena cava. CT PELVIS: Scattered small lymph nodes are within the mesentery. Mild miguel increased density is with in mesentery around these lymph nodes. Consider mesenteric adenitis left abdomen. Loops of bowel within the abdomen and pelvis are normal. Scattered diverticuli are present. No acute diverticulitis is evident. There are loops of bowel which are incompletely distended or lack oral contrast limiting their evaluation. Appendix: Normal as visualized. Urinary bladder: Normal. There appears to be some air within the nondependent portion of the urinary bladder. Correlate for recent instrumentation. Genitourinary structures: Uterus and ovaries are not identified. Osseous structures: No suspicious lytic or sclerotic lesions. IMPRESSION: 1. Scattered small lymph nodes with some mild increased miguel density within the mesentery. Correlat e for mesenteric adenitis greater in the left lower quadrant. 2. Mild diverticulosis without acute diverticulitis. 3. [facility], , 07/22/2024 8:03 PM
[2024-07-22 20:49] LABS: Glucose,Whole Blood 108 mg/dL (70-110)
[2024-07-22] MEDS: IPRATROPIUM-ALBUTEROL 3 ML NEB INHALATION SCH (20:54)
[2024-07-23 04:09] LABS: Basophils # (A) 0.04 10*3/uL (0.00-0.10); Basophils % (A) 0.5 %; Eosinophils % (A) 2.5 %; HCT 37.8 % (37.2-46.3); HGB 12.2 g/dL (12.0-15.0); Lymphocytes # (A) 2.21 10*3/uL (0.90-5.00); MCH 30.3 pg (27.0-32.0); MCHC 32.3 g/dL (32.0-37.0); MCV 93.8 fL (80.0-97.0); Monocytes # (A) 0.68 10*3/uL (0.20-1.00); Monocytes % (A) 8.6 %; Neutrophils # (A) 4.72 10*3/uL (1.80-7.70); Platelet Count 190 10*3/uL (140-440); RBC 4.03 10*6/uL (4.10-5.20); WBC 7.88 10*3/uL (4.50-10.00)
[2024-07-23 04:19] LABS: Carbon Dioxide 19 mmol/L (22-30); Chloride 108 mmol/L (98-107); Glucose 118 mg/dL (74-99); Sodium 135 mmol/L (137-145)
[2024-07-23 04:20] LABS: ALT 16 U/L (4-34); AST 35 U/L (14-36); African American GFR (CKD) >90 (>60 ml/min/1.73 sqM); Albumin 2.9 g/dL (3.5-5.0); Albumin/Globulin Ratio 1.1; Alkaline Phosphatase 50 U/L (38-126); Anion Gap 8 mmol/L; Blood Urea Nitrogen 14 mg/dL (7-17); Calcium 9.1 mg/dL (8.4-10.2); Globulin 2.6 g/dL; Non-African American GFR(CKD) >90 (>60 ml/min/1.73 sqM); Total Bilirubin 0.7 mg/dL (0.2-1.3); Total Protein 5.5 g/dL (6.3-8.2)
[2024-07-23 04:26] LABS: Potassium 5.4 mmol/L (3.5-5.1)
[2024-07-23 06:05] LABS: Glucose,Whole Blood 138 mg/dL (70-110)
[2024-07-23 12:03] LABS: Glucose,Whole Blood 116 mg/dL (70-110)
--- NOTE | 2024-07-23 14:37 | P.PN ---
Progress Note - Text Progress Note Date: 07/23/24 Chief Complaint: E. coli positive blood culture Pleasant 69-year-old patient follows Dr. Lina Ruvalcaba. Chronic medical conditions include stroke in the remote past with no residual, diabetes, hypertension, hyperlipidemia, osteoarthritis. Gastric bypass. Depression. Patient is had a cardiac catheterization and she was told she is good blockage of the small arteries but no major artery. Patient yesterday developed a fever went to [facility]. And she was discharged from there. Later she was told to come in because blood cultures were positive for E. coli. Appetite is fair. Patient has some upper respite tract congested cough. Slight minimal sputum. Appetite is fair. Denies any obvious urinary symptoms. No abdominal pain. July 22: Patient had 1 bout of loose stool today. Patient had no obvious source of E. coli. Will do CT scan abdomen pelvis with contrast to rule out any abdominal cause. IV ceftriaxone to continue. No fever. Does feel a bit tired. Did eat all her lunch July 23: Patient feels much better today. Blood cultures remain negative. CT scan abdomen pelvis unremarkable. Remains on IV ceftriaxone. Increase activity. Eating fair. Mild hyperkalemia. DC LR. Active Medications Acetaminophen (Acetaminophen Tab 325 Mg Tab) 650 mg PO Q6HR PRN PRN Reason: Mild Pain or Fever > 100.5 Last Admin: 07/22/24 03:29 Dose: 650 mg Albuterol/Ipratropium (Ipratropium-Albuterol 3 Ml Neb) 3 ml INHALATION RT-TID [facility] Last Admin: 07/23/24 12:57 Dose: Not Given Aspirin (Aspirin 81 Mg) 81 mg PO DAILY [facility] Last Admin: 07/23/24 09:11 Dose: 81 mg Atorvastatin Calcium (Atorvastatin 40 Mg Tab) 40 mg PO DAILY [facility] Last Admin: 07/23/24 09:11 Dose: 40 mg Dapagliflozin (Dapagliflozin Propanediol 5 Mg Tablet) 5 mg PO DAILY [facility] Last Admin: 07/23/24 09:11 Dose: 5 mg Dextrose/Water (Dextrose 50% Syringe 50 Ml) 25 ml IVP PER PROTOCOL PRN; Protocol PRN Reason: Hypoglycemia Dextrose/Water (Dextrose 50% Syringe 50 Ml) 50 ml IVP PER PROTOCOL PRN; Protocol PRN Reason: Hypoglycemia Enoxaparin Sodium (Enoxaparin 40 Mg/0.4 Ml Syringe) 40 mg SQ DAILY [facility] Last Admin: 07/23/24 09:10 Dose: 40 mg Lactated Ringer's (Lactated Ringers) 1,000 mls @ 100 mls/hr IV .Q10H [facility] Last Admin: 07/23/24 09:48 Dose: Not Given Ceftriaxone Sodium 2 gm/ (Sodium Chloride) 50 mls @ 100 mls/hr IVPB Q24HR [facility]; Protocol Last Admin: 07/23/24 09:10 Dose: 100 mls/hr Insulin Human Lispro (Insulin Lispro (Humalog) 100 Unit/Ml 10 Ml Vl) 0 unit SQ AC-TID [facility]; Protocol Last Admin: 07/23/24 12:08 Dose: Not Given Losartan Potassium (Losartan 25 Mg Tab) 25 mg PO DAILY [facility] Last Admin: 07/23/24 09:10 Dose: 25 mg Metformin HCl (Metformin 500 Mg Tab) 500 mg PO BID [facility] Last Admin: 07/23/24 09:11 Dose: 500 mg Morphine Sulfate (Morphine Sulfate 4 Mg/Ml Syringe) 4 mg IV Q4HR PRN PRN Reason: Severe Pain (Scale 7 to 10) Naloxone HCl (Naloxone 0.4 Mg/Ml 1 Ml Vial) 0.2 mg IV Q2M PRN PRN Reason: Opioid Reversal Non-Formulary Medication (Liraglutide [Victoza 3-Virgilio]) 1.8 mg SQ DAILY [facility] Last Admin: 07/23/24 09:47 Dose: Not Given Non-Formulary Medication (Ubrogepant [Ubrelvy]) 100 mg PO DAILY PRN PRN Reason: Migraine Headache Ondansetron HCl (Ondansetron 4 Mg/2 Ml Vial) 4 mg IVP Q8HR PRN PRN Reason: Nausea And Vomiting Last Admin: 07/22/24 08:24 Dose: 4 mg Propranolol HCl (Propranolol La 60 Mg Cap.Sa.24h) 60 mg PO DAILY [facility] Last Admin: 07/23/24 09:11 Dose: 60 mg Venlafaxine HCl (Venlafaxine Hcl Er 75 Mg Cap) 75 mg PO DAILY [facility] Last Admin: 07/23/24 09:11 Dose: 75 mg Social history: Lives with her daughter, son-in-law, grandchildren. Denies any smoking alcohol Physical examination: VITAL SIGNS: 98.1, 68, 17, 118 x 81, 97% room air GENERAL: BMI 39.3, resting in bed EYES: Pupils equal. Conjunctiva yaakov l. HEENT: External appearance of nose and ears normal, oral cavity grossly normal. NECK: JVD not raised; masses not palpable. HEART: First and second heart sounds are normal; no edema. LUNGS: Respiratory rate normal; clear to auscultation. ABDOMEN: Soft, nontender, liver spleen not palpable, no masses palpable. PSYCH: Alert and oriented x3; mood and affect yaakov l. MUSCULOSKELETAL:No Clubbing/cyanosis;muscles-grossly intact. OA INVESTIGATIONS, reviewed in the clinical context: CT scan abdomen pelvis with contrast: Unremarkable July 23: White count 7.8 hemoglobin 12.2 potassium 5.4 creatinine 0.59 July 21, 2024: White count 11.4 hemoglobin 14.4 platelets 225 sodium 138 potassium 4.4 bicarb 18 BUN 19 creatinine 0.69 UA: Negative for nitrite. Large leukoesterase. Squamous epithelial cells 4 C. difficile: Negative Assessment plan: - Patient presented yesterday to [facility] with l episode of fever. Blood cultures come back positive for E. coli. Patient denies any urinary symptoms. Does have a congested cough.: Bacteremia Patient denies any abdominal pain. Did have 1 bout of loose stool. IV ceftriaxone. Repeat blood cultures. CT scan abdomen pelvis with contrast: Unremarkable - Obesity BMI 39.3 Weight loss measures - Mild hyperkalemia DC LR - Diabetes mellitus type 2 on oral hypoglycemic Farxiga. Metformin. Victoza sliding scale with Accu-Cheks - Hyperlipidemia Lipitor 40 mg a day - Essential hypertension Cozaar 25 mg. Inderal LA 60 mg a day. - Primary osteoarthritis multiple joints Pain medications - Depression Effexor XR - Coronary artery disease nonobstructive per cardiac catheterization Ranexa. Inderal LA. Cozaar. - Full code Continue IV ceftriaxone. Await blood cultures to be final Past Medical History Past Medical History: Asthma, Coronary Artery Disease (CAD), CVA/TIA, Diabetes Mellitus, Hyperlipidemia, Hypertension History of Any Multi-Drug Resistant Organisms: None Reported Past Surgical History: Cholecystectomy, Heart Catheterization, Orthopedic Surgery Additional Past Surgical History / Comment(s): right elbow surgery, rotator cuff, knee surgery, gastric bypass, Past Anesthesia/Blood Transfusion Reactions: No Reported Reaction Past Psychological History: Depression Smoking Status: Never smoker Past Alcohol Use History: None Reported Past Drug Use History: None Reported
[2024-07-23 16:39] LABS: Glucose,Whole Blood 124 mg/dL (70-110)
--- NOTE | 2024-07-23 17:06 | CDI ---
Documentation Clarification Form Date: 07/23/2024 04:27:00 PM From: Afua Harkins RN, CCDS Phone: [phone] Admit Date: 07/21/2024 08:04:00 PM Patient Name: Carol Hutchins Visit Number: [id number] Discharge Date: ATTENTION: The Clinical Documentation Specialists (CDI) and [facility] Coding Staff appreciate your assistance in clarifying documentation. Please respond to the clarification below the line at the bottom and electronically sign. The CDI & [facility] Coding staff will review the response and follow-up if needed. Please note: Queries are made part of the Legal Health Record. If you have any questions, please contact the author of this message via ITS. DoctorMisti [facility] progress note as patient was seen at [facility] on 07/22/24 and diagnosed with UTI and was informed that blood cultures was positive for E. coli received IV Rocephin. Additional clarification regarding this diagnosis is requested. History/Risk Factors: Asthma, Coronary Artery Disease (CAD), CVA/TIA, Diabetes Mellitus, Hyperlipidemia, Hypertension Clinical Indicators: 69-year-old female to ED for blood culture positive for E. coli. She was treated for UTI on 07/22/24. Denies urinary symptoms at this time. 07/21 Vital Signs: (10:22) 129/86 106 97.9 97% RA 07/21 WBC: 11.49 07/21 Urinalysis: Ua: Appearance-Cloudy, Urine Nitrite-Negative, Ur Leukocyte Esterase Large Urine WBC 85 07/21 Urine Culture: Final Apparent skin and/or genital juany 07/21 Blood Culture: Pending Treatment Rocephin 2 GM IVPB Q 24 HRS 07/21 Once > 07/22-07/23 .9NS 1,000 MLS IV 07/21-07/21 Please clarify if there is an additional diagnosis appreciate for this patient? [ ] UTI [+] UTI Ruled out [ ] Other, please specify [ ] Unable to determine (Template Last Revised: April 2020) MTDD
[2024-07-23 20:46] LABS: Glucose,Whole Blood 127 mg/dL (70-110)
[2024-07-24 01:53] LABS: Glucose,Whole Blood 127 mg/dL (70-110)
[2024-07-24 04:20] LABS: African American GFR (CKD) >90 (>60 ml/min/1.73 sqM); Anion Gap 9 mmol/L; Blood Urea Nitrogen 14 mg/dL (7-17); Calcium 9.5 mg/dL (8.4-10.2); Carbon Dioxide 20 mmol/L (22-30); Chloride 108 mmol/L (98-107); Glucose 113 mg/dL (74-99); Non-African American GFR(CKD) >90 (>60 ml/min/1.73 sqM); Potassium 3.9 mmol/L (3.5-5.1); Sodium 137 mmol/L (137-145)
[2024-07-24 06:07] LABS: Glucose,Whole Blood 120 mg/dL (70-110)
[2024-07-24 11:45] LABS: Glucose,Whole Blood 141 mg/dL (70-110)
[2024-07-24 16:17] LABS: Glucose,Whole Blood 121 mg/dL (70-110)
--- NOTE | 2024-07-24 20:07 | P.PN ---
Progress Note - Text Progress Note Date: 07/24/24 Chief Complaint: E. coli positive blood culture Pleasant 69-year-old patient follows Dr. Lina Ruvalcaba. Chronic medical conditions include stroke in the remote past with no residual, diabetes, hypertension, hyperlipidemia, osteoarthritis. Gastric bypass. Depression. Patient is had a cardiac catheterization and she was told she is good blockage of the small arteries but no major artery. Patient yesterday developed a fever went to [facility]. And she was discharged from there. Later she was told to come in because blood cultures were positive for E. coli. Appetite is fair. Patient has some upper respite tract congested cough. Slight minimal sputum. Appetite is fair. Denies any obvious urinary symptoms. No abdominal pain. July 22: Patient had 1 bout of loose stool today. Patient had no obvious source of E. coli. Will do CT scan abdomen pelvis with contrast to rule out any abdominal cause. IV ceftriaxone to continue. No fever. Does feel a bit tired. Did eat all her lunch July 23: Patient feels much better today. Blood cultures remain negative. CT scan abdomen pelvis unremarkable. Remains on IV ceftriaxone. Increase activity. Eating fair. Mild hyperkalemia. DC LR. Given 19: Seen this morning. Blood culture still pending. Otherwise clinically feels well. IV ceftriaxone. Active Medications Acetaminophen (Acetaminophen Tab 325 Mg Tab) 650 mg PO Q6HR PRN PRN Reason: Mild Pain or Fever > 100.5 Last Admin: 07/22/24 03:29 Dose: 650 mg Albuterol/Ipratropium (Ipratropium-Albuterol 3 Ml Neb) 3 ml INHALATION RT-TID [facility] Last Admin: 07/24/24 20:04 Dose: Not Given Aspirin (Aspirin 81 Mg) 81 mg PO DAILY [facility] Last Admin: 07/24/24 10:43 Dose: 81 mg Atorvastatin Calcium (Atorvastatin 40 Mg Tab) 40 mg PO DAILY [facility] Last Admin: 07/24/24 10:15 Dose: 40 mg Dapagliflozin (Dapagliflozin Propanediol 5 Mg Tablet) 5 mg PO DAILY [facility] Last Admin: 07/24/24 10:15 Dose: 5 mg Dextrose/Water (Dextrose 50% Syringe 50 Ml) 25 ml IVP PER PROTOCOL PRN; Protocol PRN Reason: Hypoglycemia Dextrose/Water (Dextrose 50% Syringe 50 Ml) 50 ml IVP PER PROTOCOL PRN; Protocol PRN Reason: Hypoglycemia Enoxaparin Sodium (Enoxaparin 40 Mg/0.4 Ml Syringe) 40 mg SQ DAILY [facility] Last Admin: 07/24/24 10:15 Dose: 40 mg Ceftriaxone Sodium 2 gm/ (Sodium Chloride) 50 mls @ 100 mls/hr IVPB Q24HR [facility]; Protocol Last Admin: 07/24/24 10:14 Dose: 100 mls/hr Insulin Human Lispro (Insulin Lispro (Humalog) 100 Unit/Ml 10 Ml Vl) 0 unit SQ AC-TID [facility]; Protocol Last Admin: 07/24/24 17:32 Dose: Not Given Losartan Potassium (Losartan 25 Mg Tab) 25 mg PO DAILY [facility] Last Admin: 07/24/24 10:15 Dose: 25 mg Metformin HCl (Metformin 500 Mg Tab) 500 mg PO BID [facility] Last Admin: 07/24/24 10:15 Dose: 500 mg Morphine Sulfate (Morphine Sulfate 4 Mg/Ml Syringe) 4 mg IV Q4HR PRN PRN Reason: Severe Pain (Scale 7 to 10) Naloxone HCl (Naloxone 0.4 Mg/Ml 1 Ml Vial) 0.2 mg IV Q2M PRN PRN Reason: Opioid Reversal Non-Formulary Medication (Liraglutide [Victoza 3-Virgilio]) 1.8 mg SQ DAILY [facility] Last Admin: 07/24/24 10:25 Dose: Not Given Non-Formulary Medication (Ubrogepant [Ubrelvy]) 100 mg PO DAILY PRN PRN Reason: Migraine Headache Ondansetron HCl (Ondansetron 4 Mg/2 Ml Vial) 4 mg IVP Q8HR PRN PRN Reason: Nausea And Vomiting Last Admin: 07/22/24 08:24 Dose: 4 mg Propranolol HCl (Propranolol La 60 Mg Cap.Sa.24h) 60 mg PO DAILY [facility] Last Admin: 07/24/24 10:16 Dose: 60 mg Venlafaxine HCl (Venlafaxine Hcl Er 75 Mg Cap) 75 mg PO DAILY [facility] Last Admin: 07/24/24 10:15 Dose: 75 mg Social history: Lives with her daughter, son-in-law, grandchildren. Denies any smoking alcohol Physical examination: VITAL SIGNS: 98, 68, 16, 111 x 71, 98% room air GENERAL: BMI 39.3, up in the chair EYES: Pupils equal. Conjunctiva yaakov l. HEENT: External appearance of nose and ears normal, oral cavity grossly normal. NECK: JVD not raised; masses not palpable. HEART: First and second heart sounds are normal; no edema. LUNGS: Respiratory rate normal; clear to auscultation. ABDOMEN: Soft, nontender, liver spleen not palpable, no masses palpable. PSYCH: Alert and oriented x3; mood and affect yaakov l. MUSCULOSKELETAL:No Clubbing/cyanosis;muscles-grossly intact. OA INVESTIGATIONS, reviewed in the clinical context: Blood culture pending July 24: Potassium 3.[address] scan abdomen pelvis with contrast: Unremarkable July 23: White count 7.8 hemoglobin 12.2 potassium 5.4 creatinine 0.59 July 21, 2024: White count 11.4 hemoglobin 14.4 platelets 225 sodium 138 potassium 4.4 bicarb 18 BUN 19 creatinine 0.69 UA: Negative for nitrite. Large leukoesterase. Squamous epithelial cells 4 C. difficile: Negative Assessment plan: - Patient presented yesterday to [facility] with l episode of fever. Blood cultures come back positive for E. coli. Patient denies any urinary symptoms. Does have a congested cough.: Bacteremia Patient denies any abdominal pain. Did have 1 bout of loose stool. IV ceftriaxone. Repeat blood cultures-pending. CT scan abdomen pelvis with contrast: Unremarkable - Obesity BMI 39.3 Weight loss measures - Mild hyperkalemia DC LR - Diabetes mellitus type 2 on oral hypoglycemic Farxiga. Metformin. Victoza sliding scale with Accu-Cheks - Hyperlipidemia Lipitor 40 mg a day - Essential hypertension Cozaar 25 mg. Inderal LA 60 mg a day. - Primary osteoarthritis multiple joints Pain medications - Depression Effexor XR - Coronary artery disease nonobstructive per cardiac catheterization Ranexa. Inderal LA. Cozaar. - Full code Continue IV ceftriaxone. Discussed with patient. Pending blood cultures results Past Medical History Past Medical History: Asthma, Coronary Artery Disease (CAD), CVA/TIA, Diabetes Mellitus, Hyperlipidemia, Hypertension History of Any Multi-Drug Resistant Organisms: None Reported Past Surgical History: Cholecystectomy, Heart Catheterization, Orthopedic Surgery Additional Past Surgical History / Comment(s): right elbow surgery, rotator cuff, knee surgery, gastric bypass, Past Anesthesia/Blood Transfusion Reactions: No Reported Reaction Past Psychological History: Depression Smoking Status: Never smoker Past Alcohol Use History: None Reported Past Drug Use History: None Reported
[2024-07-24 20:21] LABS: Glucose,Whole Blood 140 mg/dL (70-110)
[2024-07-25 06:11] LABS: Glucose,Whole Blood 125 mg/dL (70-110)
[2024-07-25 07:21] VITALS: PULSE 70
[2024-07-25 11:45] LABS: Glucose,Whole Blood 97 mg/dL (70-110)
[2024-07-25 14:20] VITALS: RESP 20
[2024-07-25 14:57] VITALS: BP 105/58; TEMP 97.9
--- NOTE | 2024-07-25 20:01 | P.DS ---
Providers Date of admission: 07/21/24 20:04 Expected date of discharge: 07/25/24 Attending physician: Rell Manley Primary care physician: Lina Ruvalcaba MD Hospital Course: Chief Complaint: E. coli positive blood culture Pleasant 69-year-old patient follows Dr. Lina Ruvalcaba. Chronic medical conditions include stroke in the remote past with no residual, diabetes, hypertension, hyperlipidemia, osteoarthritis. Gastric bypass. Depression. Patient is had a cardiac catheterization and she was told she is good blockage of the small arteries but no major artery. Patient yesterday developed a fever went to [facility]. And she was discharged from there. Later she was told to come in because blood cultures were positive for E. coli. Appetite is fair. Patient has some upper respite tract congested cough. Slight minimal sputum. Appetite is fair. Denies any obvious urinary symptoms. No abdominal pain. July 22: Patient had 1 bout of loose stool today. Patient had no obvious source of E. coli. Will do CT scan abdomen pelvis with contrast to rule out any abdominal cause. IV ceftriaxone to continue. No fever. Does feel a bit tired. Did eat all her lunch July 23: Patient feels much better today. Blood cultures remain negative. CT scan abdomen pelvis unremarkable. Remains on IV ceftriaxone. Increase activity. Eating fair. Mild hyperkalemia. DC LR. July 24: Seen this morning. Blood culture still pending. Otherwise clinically feels well. IV ceftriaxone. July 25: Feeling well. Keen to go home. Cultures remain negative till now. Patient received 5 more days of Ceftin. Questions answered Social history: Lives with her daughter, son-in-law, grandchildren. Denies any smoking alcohol Physical examination: VITAL SIGNS: 97.9, 66, 18, 105/58, 96% room air GENERAL: BMI 39.3, comfortable EYES: Pupils equal. Conjunctiva yaakov l. HEENT: External appearance of nose and ears normal, oral cavity grossly normal. NECK: JVD not raised; masses not palpable. HEART: First and second heart sounds are normal; no edema. LUNGS: Respiratory rate normal; clear to auscultation. ABDOMEN: Soft, nontender, liver spleen not palpable, no masses palpable. PSYCH: Alert and oriented x3; mood and affect yaakov l. MUSCULOSKELETAL:No Clubbing/cyanosis;muscles-grossly intact. OA INVESTIGATIONS, reviewed in the clinical context: Blood culture [July 21] negative till now July 24: Potassium 3.[address] scan abdomen pelvis with contrast: Unremarkable July 23: White count 7.8 hemoglobin 12.2 potassium 5.4 creatinine 0.59 July 21, 2024: White count 11.4 hemoglobin 14.4 platelets 225 sodium 138 potassium 4.4 bicarb 18 BUN 19 creatinine 0.69 UA: Negative for nitrite. Large leukoesterase. Squamous epithelial cells 4 C. difficile: Negative Assessment plan: - Patient presented yesterday to [facility] with l episode of fever. Blood cultures come back positive for E. coli. Patient denies any urinary symptoms. Does have a congested cough.: Bacteremia Patient denies any abdominal pain. Did have 1 bout of loose stool. IV ceftriaxone. Repeat blood cultures-negative till now CT scan abdomen pelvis with contrast: Unremarkable Discharged on Ceftin 500 mg p.o. twice daily for 5 more days - Obesity BMI 39.3 Weight loss measures - Mild hyperkalemia DC LR - Diabetes mellitus type 2 on oral hypoglycemic Farxiga. Metformin. Victoza sliding scale with Accu-Cheks - Hyperlipidemia Lipitor 40 mg a day - Essential hypertension Cozaar 25 mg. Inderal LA 60 mg a day. - Primary osteoarthritis multiple joints Pain medications - Depression Effexor XR - Coronary artery disease nonobstructive per cardiac catheterization Ranexa. Inderal LA. Cozaar. - Full code Disposition: Home Past Medical History Past Medical History: Asthma, Coronary Artery Disease (CAD), CVA/TIA, Diabetes Mellitus, Hyperlipidemia, Hypertension History of Any Multi-Drug Resistant Organisms: None Reported Past Surgical History: Cholecystectomy, Heart Catheterization, Orthopedic Surgery Additional Past Surgical History / Comment(s): right elbow surgery, rotator cuff, knee surgery, gastric bypass, Past Anesthesia/Blood Transfusion Reactions: No Reported Reaction Past Psychological History: Depression Smoking Status: Never smoker Past Alcohol Use History: None Reported Past Drug Use History: None Reported Plan - Discharge Summary Discharge Rx Participant: No New Discharge Prescriptions: New cefuroxime axetiL [Ceftin] 500 mg PO BID #10 tab Continue Venlafaxine HCl [Effexor XR] 150 mg PO DAILY Losartan [Cozaar] 25 mg PO DAILY Propranolol LA [Inderal LA] 60 mg PO DAILY Omeprazole 20 mg PO DAILY metFORMIN HCL 500 mg PO BID Ranolazine [Ranexa] 500 mg PO DAILY Erenumab-Aooe [Aimovig Autoinjector] 70 mg SQ Q30D Atorvastatin [Lipitor] 40 mg PO DAILY Aspirin EC [Ecotrin Low Dose] 81 mg PO DAILY Venlafaxine HCl [Effexor XR] 75 mg PO DAILY Liraglutide [Victoza 3-Virgilio] 1.8 mg SQ DAILY Montelukast [Singulair] 10 mg PO HS Ibuprofen [Motrin] 600 mg PO TID Dapagliflozin Propanediol [Farxiga] 5 mg PO DAILY Ubrogepant [Ubrelvy] 100 mg PO DAILY PRN PRN Reason: Migraine Headache No Action Fluticasone Propion/Salmeterol [Advair Hfa 115-21 Mcg Inhaler] 2 puff INHALATION RT-BID Discharge Medication List Atorvastatin [Lipitor] 40 mg PO DAILY 01/13/23 [History] Erenumab-Aooe [Aimovig Autoinjector] 70 mg SQ Q30D 01/13/23 [History] Liraglutide [Victoza 3-Virgilio] 1.8 mg SQ DAILY 01/13/23 [History] Losartan [Cozaar] 25 mg PO DAILY 01/13/23 [History] Montelukast [Singulair] 10 mg PO HS 01/13/23 [History] Omeprazole 20 mg PO DAILY 01/13/23 [History] Propranolol LA [Inderal LA] 60 mg PO DAILY 01/13/23 [History] Ranolazine [Ranexa] 500 mg PO DAILY 01/13/23 [History] Venlafaxine HCl [Effexor XR] 75 mg PO DAILY 01/13/23 [History] Venlafaxine HCl [Effexor XR] 150 mg PO DAILY 01/13/23 [History] metFORMIN HCL 500 mg PO BID 01/13/23 [History] Aspirin EC [Ecotrin Low Dose] 81 mg PO DAILY 07/21/24 [History] Dapagliflozin Propanediol [Farxiga] 5 mg PO DAILY 07/21/24 [History] Ibuprofen [Motrin] 600 mg PO TID 07/21/24 [History] Ubrogepant [Ubrelvy] 100 mg PO DAILY PRN 07/21/24 [History] Fluticasone Propion/Salmeterol [Advair Hfa 115-21 Mcg Inhaler] 2 puff INHALATION RT-BID 07/25/24 [History] cefuroxime axetiL [Ceftin] 500 mg PO BID #10 tab 07/25/24 [Rx] Follow up Appointment(s)/Referral(s): Lina Ruvalcaba MD [Primary Care Provider] - 1-2 days (Office requesting patient call to make appt. Please see your PCP as instructed. Thank you.) Patient Instructions/Handouts: Bacteremia (DC) Discharge Disposition: HOME SELF-CARE
== END 2024-07-25 15:25 | disposition home or self-care (01) | DRG 872 ==
LOC: EC 10:03 → 4SSUR 16:23 → OBSVTOIN 20:04 → 4SSUR 20:29
PROVIDERS: ADMIT Hospitalist; ATTEND Hospitalist
DX: R78.81 Bacteremia (principal); B96.20 Unspecified Escherichia coli [E. coli] as the cause of diseases classified elsewhere; E11.9 Type 2 diabetes mellitus without complications; E66.9 Obesity, unspecified; E78.5 Hyperlipidemia, unspecified; I10 Essential (primary) hypertension; F32.A Depression, unspecified; E87.5 Hyperkalemia; M15.9 Polyosteoarthritis, unspecified; I25.10 Atherosclerotic heart disease of native coronary artery without angina pectoris; Z68.39 Body mass index [BMI] 39.0-39.9, adult; Z98.84 Bariatric surgery status; Z86.73 Personal history of transient ischemic attack (TIA), and cerebral infarction without residual deficits; Z79.82 Long term (current) use of aspirin; Z79.84 Long term (current) use of oral hypoglycemic drugs; Z79.899 Other long term (current) drug therapy; Z79.85 Long-term (current) use of injectable non-insulin antidiabetic drugs
CPT/HCPCS: 36410; 36415; 71046; 71275; 74177; 76937; 80048; 80053; 81001; 83605; 85025; 87040; 87045; 87046; 87086; 87324; 94640; 94664; 94760; 96361; 96365; 96372; 96375; 99285